=== PATIENT | female | born 1975 | race Caucasian/White ===

== ENCOUNTER → 2020-04-10 16:24 | Outpatient (CLI) | payer OTHER, SELFPAY ==
--- NOTE | ~2020-04-10 | MM_ITS ---
EXAMINATION: MM screening [facility] BI w precious HISTORY: Screening mammogram TECHNIQUE: Craniocaudal and mediolateral oblique 3-D tomosynthesis images were obtained and synthetic 2-D images were generated. CAD analysis was submitted and interpreted. COMPARISON: 04/02/2019, 04/15/2018, 01/18/2017 BREAST PARENCHYMAL COMPOSITION: The breasts are almost entirely fatty. FINDINGS: There is no evidence of suspicious mass, calcification, or architectural distortion to sugg est malignancy in either breast. There has been no suspicious interval change. IMPRESSION: 1. No mammographic evidence of malignancy. 2. Recommend routine screening mammography in one year. BI-RADS Category 1: Negative Reviewed, dictated and finalized at location A.
== END ==
PROVIDERS: Visit Provider Nurse Practitioner
DX: Z12.31 Encounter for screening mammogram for malignant neoplasm of breast (principal)
CPT/HCPCS: 77063; 77067

== ENCOUNTER → 2021-04-12 17:58 | Outpatient (CLI) | payer OTHER, SELFPAY ==
--- NOTE | ~2021-04-12 | MM_ITS ---
EXAMINATION: MM screening [facility] BI w precious HISTORY: Screening mammogram TECHNIQUE: Craniocaudal and mediolateral oblique 3-D tomosynthesis images were obtained and synthetic 2-D images were generated. CAD analysis was submitted and interpreted. COMPARISON: 04/10/2020, 04/02/2019, 02/13/2018 BREAST PARENCHYMAL COMPOSITION: The breasts are almost entirely fatty. FINDINGS: There is no evidence of suspicious mass, calcification, or architectural distortion to sugg est malignancy in either breast. There has been no suspicious interval change. IMPRESSION: 1. No mammographic evidence of malignancy. 2. Recommend routine screening mammography in one year. BI-RADS Category 1: Negative Reviewed, dictated and finalized at location A.
== END ==
PROVIDERS: Visit Provider Nurse Practitioner
DX: Z12.31 Encounter for screening mammogram for malignant neoplasm of breast (principal)
CPT/HCPCS: 77063; 77067

== ENCOUNTER 2021-12-17 01:14 | Day surgery (SDC) | payer OTHER, SELFPAY ==
[2021-12-07 10:07] VITALS: BMI 41.5
[2021-12-17 08:24] VITALS: BP 155/103; PULSE 64; RESP 20; TEMP 36; O2SAT 99; BMI 40.8
--- NOTE | 2021-12-17 08:36 | P.PNAN_ITS ---
Anes - Initial Pre Proc Eval Procedure: Operation Date: 12/17/21 09:00 Proposed Procedures p Colonoscopy - Estrada Montalvo MD Date/Time: 12/17/21 08:36 Surgeon: Estrada Montalvo MD Pre Op Diagnosis: diarrhea Patient Data Age: 46 Gender: F Height: 1.65 m Weight: 111.5 kg Last Vital Signs Temp 36.0 C L 12/17/21 08:24 Pulse 64 12/17/21 08:24 Resp 20 12/17/21 08:24 BP 155/103 H 12/17/21 08:24 Pulse Ox 99 12/17/21 08:24 Allergies Allergy/AdvReac Type Severity Reaction Status Date / Time levofloxacin Allergy Unknown itchy Verified 12/07/21 10:06 hives and rash Home Medications Medication Instructions Recorded Confirmed Type cholecalciferol (vitamin D3) 50 50 mcg PO DAILY 07/09/19 12/07/21 History mcg (2,000 unit) capsule etonogestrel 0.12 mg-ethinyl 1 vag ring VAGINAL ONCE 07/09/19 12/07/21 History estradiol 0.015 mg/24 hr vaginal ring multivitamin 1 tablet PO DAILY 07/09/19 12/07/21 History oxybutynin chloride 5 mg tablet 5 mg PO BID 07/09/19 12/07/21 History sertraline 100 mg tablet 150 mg PO DAILY tablet 08/18/21 12/07/21 History amlodipine 2.5 mg tablet See Rx Instructions .ROUTE 11/01/21 12/07/21 Rx .COMPLEX #90 tablet lisinopril 20 See Rx Instructions .ROUTE 11/01/21 12/07/21 Rx mg-hydrochlorothiazide 12.5 mg .COMPLEX #90 tablet tablet fenofibrate 160 mg tablet 160 mg PO DAILY #90 tablet 11/03/21 12/07/21 Rx Patient hx anesthesia problems: none Family hx anesthesia problems: none Results Review: All pre-operative results and documents have been reviewed as part of the pre-operative evaluation. [facility] Past Medical History Medical History (Updated 12/17/21 @ 08:36 by Fer Lund MD) Morbid obesity Surgical History Surgical History (Updated 12/17/21 @ 08:36 by Fer Lund MD) History of section Family History Family History Father Hypertension Social History Social History Smoking status: Never smoker Second hand tobacco smoke exposure: No Alcohol intake: never Substance use: never Substance use type: does not use Living arrangements: alone Gender identity (if verbalized by the patient): Female Spiritual care concerns: No Anes - Eval Final PreProcedure Day of Procedure 12/17/21 08:36 Patient weight: morbidly obese Heart: regular rate and rhythm Lungs: clear to auscultation Airway: Mallampati scale class II Neurological: alert and oriented Last oral intake: >/= 8 hours ASA classification: III Emergent: no Anesthetic plan: proceed Anesthesia type and monitoring: general GIVS and standard monitoring Results Review: All pre-operative results and documents have been reviewed as part of the pre-operative evaluation. Informed Consent: The patient's anesthetic plan and its attendant risks and benefits were discussed with the patient/family/POA. Questions were solicited and answers provided to the satisfaction of the patient/family/POA.
[2021-12-17] MEDS: LACTATED RINGERS 1,000 ML 150 ML IV CONT (08:40)
[2021-12-17 08:43] VITALS: BP 143/78
--- NOTE | 2021-12-17 08:44 | WPDGICN ---
Assessment and Plan Assessment and plan (1) Chronic diarrhea: Code(s): K52.9 - Noninfective gastroenteritis and colitis, unspecified Status: Acute Assessment and Plan: Colonoscopy with possible biopsy or polypectomy or cautery or injection of substances. GI Consult Note Consult date/time: 12/17/21 08:44 HPI: Maryjo Heard is a 46 year old female Was referred because of persistent diarrhea. Beginning about 1 year ago she has had very loose stools. Sometimes they are very very soft. Often they are watery. She is having no abdominal pain or cramping. She has had no weight loss nausea vomiting or other symptoms. There has been no blood her stools. There is no family history of inflammatory bowel disease. She has been using Imodium to try to control her symptoms. Review of Systems Review of Systems: All systems reviewed & are unremarkable except as noted in HPI and below PMFSH Past Medical History Medical History Morbid obesity Surgical History Surgical History History of section Family History Family History Father Hypertension Social History Social History Smoking status: Never smoker Second hand tobacco smoke exposure: No Alcohol intake: never Substance use: never Substance use type: does not use Living arrangements: alone Gender identity (if verbalized by the patient): Female Spiritual care concerns: No Meds Home Medications and Allergies Home Medications Medication Instructions Recorded Confirmed Type cholecalciferol (vitamin D3) 50 50 mcg PO DAILY 07/09/19 12/07/21 History mcg (2,000 unit) capsule etonogestrel 0.12 mg-ethinyl 1 vag ring VAGINAL ONCE 07/09/19 12/07/21 History estradiol 0.015 mg/24 hr vaginal ring multivitamin 1 tablet PO DAILY 07/09/19 12/07/21 History oxybutynin chloride 5 mg tablet 5 mg PO BID 07/09/19 12/07/21 History sertraline 100 mg tablet 150 mg PO DAILY tablet 08/18/21 12/07/21 History amlodipine 2.5 mg tablet See Rx Instructions .ROUTE 11/01/21 12/07/21 Rx .COMPLEX #90 tablet lisinopril 20 See Rx Instructions .ROUTE 11/01/21 12/07/21 Rx mg-hydrochlorothiazide 12.5 mg .COMPLEX #90 tablet tablet fenofibrate 160 mg tablet 160 mg PO DAILY #90 tablet 11/03/21 12/07/21 Rx Allergies Allergy/AdvReac Type Severity Reaction Status Date / Time levofloxacin Allergy Unknown itchy Verified 12/07/21 10:06 hives and rash Vital Signs Vital Signs - 24 hr 12/17/21 08:24 12/17/21 08:43 Temperature 36.0 C L Pulse Rate 64 Respiratory Rate 20 Blood Pressure 155/103 H 143/78 H Pulse Oximetry 99 Exam Const: General: alert Orientation/consciousness: patient oriented x3 Resp: Auscultation: clear to auscultation bilaterally Cardio: Rhythm: regular rhythm GI: GI Palp: Yes Soft to palpation and No Tenderness to palpation present (GI) Neuro: General: patient oriented x3
[2021-12-17 09:12] VITALS: BP 91/55; PULSE 65; RESP 17; O2SAT 94
[2021-12-17 09:22] VITALS: BP 106/64; PULSE 59; RESP 14; O2SAT 99
[2021-12-17 09:32] VITALS: BP 115/64; PULSE 62; RESP 15; O2SAT 100
== END 2021-12-17 09:45 | disposition home or self-care (01) ==
PROVIDERS: PCP Family Medicine; Visit Provider Internal Medicine Gastroenterology
PROC: 0DJD8ZZ Inspection of Lower Intestinal Tract, Via Natural or Artificial Opening Endoscopic (ICD-10-PCS; CPT 45378; principal; 2021-12-17 09:00)
DX: Z12.11 Encounter for screening for malignant neoplasm of colon (principal); D12.2 Benign neoplasm of ascending colon; R19.7 Diarrhea, unspecified; E66.01 Morbid (severe) obesity due to excess calories; Z68.41 Body mass index [BMI] 40.0-44.9, adult
CPT/HCPCS: 45380; 88305; J2704; J7120

== ENCOUNTER 2022-01-25 09:18 | Emergency (ER) | payer OTHER, SELFPAY ==
[2022-01-25 09:34] VITALS: BP 138/81; PULSE 70; RESP 16; TEMP 36.5; O2SAT 99
--- NOTE | 2022-01-25 09:56 | ED.FEMALEGU ---
HPI - Female Genitourinary General Chief complaint: Urogenital-Female Stated complaint: poss uti or yeast infec Time Seen by Provider: 01/25/22 10:02 Source: patient and RN notes reviewed Mode of arrival: ambulatory Limitations: no limitations History of Present Illness HPI Narrative: 46-year-old female presents with concern for suprapubic pressure, urinary urgency, vaginal itching. She reports she had a urinary tract infection at the beginning of December for which she was placed on an antibiotic. Reports symptoms seem to resolve. Reports she recently finished an antibiotic for sinus infection. Reports 1 week after finishing the second antibiotic she began having these new symptoms. She denies dysuria, frequency, hematuria, abnormal vaginal discharge, abnormal vaginal bleeding. She denies intervention. MD elicited complaint: UTI Related Data Home Medications Medication Instructions Recorded Confirmed cholecalciferol (vitamin D3) 50 50 mcg PO DAILY 07/09/19 01/25/22 mcg (2,000 unit) capsule etonogestrel 0.12 mg-ethinyl 1 vag ring vaginal ONCE 07/09/19 01/25/22 estradiol 0.015 mg/24 hr vaginal ring (NuvaRing) multivitamin 1 tablet PO DAILY 07/09/19 01/25/22 oxybutynin chloride 5 mg tablet 5 mg PO BID 07/09/19 01/25/22 sertraline 100 mg tablet (Zoloft) 150 mg PO DAILY 08/18/21 01/25/22 Allergies Allergy/AdvReac Type Severity Reaction Status Date / Time levofloxacin Allergy Unknown itchy Verified 01/25/22 10:02 hives and rash Review of Systems Review of Systems: CONSTITUTIONAL: Denies malaise, chills, sweats, or fever. CARDIOVASCULAR: Denies chest pain, palpitations, or edema. RESPIRATORY: Denies cough or dyspnea. GASTROINTESTINAL: Denies abdominal pain, nausea, vomiting, diarrhea GENITOURINARY: Reports urgency, suprapubic pressure. Denies dysuria, frequency, flank pain or hematuria. SKIN: Denies rash or itching. MUSCULOSKELETAL: Denies back pain or myalgia. All systems reviewed & are unremarkable except as noted in HPI and below PMFSH Past Medical History Medical History Morbid obesity Surgical History Surgical History History of section Family History Family History Father Hypertension Social History Social History Smoking status: Never smoker Second hand tobacco smoke exposure: No Alcohol intake: never Substance use: never Substance use type: does not use Gender identity (if verbalized by the patient): Female Spiritual care concerns: No Comments At time of signature, agree with nursing past medical, surgical, social and family history. There is no relevant family history pertinent to the presenting complaint Exam Narrative: GENERAL: Well-appearing, well-nourished, and in no acute distress. HEAD: Normocephalic. EYES: PERRLA, conjunctivae clear. NECK: Supple. No lymphadenopathy CHEST: Clear to auscultation. No respiratory distress. HEART: Regular rate and rhythm. ABDOMEN: Soft, nontender upon palpation, nondistended, normal active bowel sounds, no palpable or pulsatile masses, no guarding. No CVA tenderness SKIN: Warm, dry, no rash. NEURO: Alert and oriented x3. PSYCH: Normal mood and affect Course Course Emergency Course: Discussed treatment for possible UTI now or waiting for culture. Given that patient has been on antibiotics twice in the past month through shared decision making it was decided to wait for culture results to treat for UTI. Patient declined pelvic exam, patient is not having discharge. We will treat presumptively for yeast. Patient is aware of diagnosis, understands and agrees to treatment plan. Anticipatory guidance given. Patient agrees to follow-up as directed and is aware of reasons to seek care at the emergency depar
== END 2022-01-25 10:13 | disposition home or self-care (01) ==
PROVIDERS: Emergency Provider Nurse Practitioner; PCP Family Medicine
DX: N89.8 Other specified noninflammatory disorders of vagina (principal); E66.01 Morbid (severe) obesity due to excess calories; Z68.41 Body mass index [BMI] 40.0-44.9, adult
CPT/HCPCS: 81003; 87077; 87086; 87186; 99213; G0463

== ENCOUNTER → 2022-04-12 17:02 | Outpatient (CLI) | payer OTHER, SELFPAY ==
--- NOTE | ~2022-04-12 | MM_ITS ---
EXAMINATION: MM screening [facility] BI w precious HISTORY: Screening TECHNIQUE: Craniocaudal and mediolateral oblique 3-D tomosynthesis images were obtained and synthetic 2-D images were generated. CAD analysis was submitted and interpreted. COMPARISON: Comparison to multiple prior studies sequentially, with oldest reviewed study dated 01/18. BREAST PARENCHYMAL COMPOSITION: The breasts are almost entirely fatty. FINDINGS: There is no evidence of suspicious mass, calcification, or architectural distortion to sugg est malignancy in either breast. There has been no suspicious interval change. IMPRESSION: 1. No mammographic evidence of malignancy. 2. Recommend routine screening mammography in one year. BI-RADS Category 1: Negative Reviewed, dictated and finalized at location A.
== END ==
PROVIDERS: Visit Provider Nurse Practitioner
DX: Z12.31 Encounter for screening mammogram for malignant neoplasm of breast (principal)
CPT/HCPCS: 77063; 77067

== ENCOUNTER 2022-12-25 04:21 | Emergency (ER) | payer OTHER, SELFPAY ==
[2022-12-25] VITALS (7 sets, daily range): BP systolic 127–148; BP diastolic 66–81; PULSE 85–89; RESP 17–18; TEMP 36.5; O2SAT 98–100
[2022-12-25] MEDS: FAMOTIDINE 20 MG TABLET PO (05:21)
[2022-12-25] MEDS: methylPREDNISolone SOD SUCC 125 MG VIAL IM (05:22)
--- NOTE | 2022-12-25 05:45 | ED.GENADULT ---
HPI - General Adult General Chief complaint: Allergic Reaction Stated complaint: Lower lip swelling Time Seen by Provider: 12/25/22 04:59 History of Present Illness HPI narrative: Patient is a 47-year-old female who presents the emergency department with chief complaint of possible allergic reaction. The patient reports that she is currently being treated for a UTI by her urologist and reports that she started taking the Bactrim and then noticed that she started having swelling in her lips. Patient states she has no shortness of breath states it is little bit itchy reports that she had a similar episode the last time she had a UTI and took a Xyzal with the patient reports that she was seen in urgent care at that time given a dose of steroids and put on a course of steroids afterwards. The patient reports that this time she started the symptoms and had not taken any antihistamine. Related Data Home Medications Medication Instructions Recorded Confirmed cholecalciferol (vitamin D3) 50 50 mcg PO DAILY 07/09/19 09/15/22 mcg (2,000 unit) capsule etonogestrel 0.12 mg-ethinyl 1 vag ring vaginal ONCE 07/09/19 09/15/22 estradiol 0.015 mg/24 hr vaginal ring (NuvaRing) multivitamin 1 tablet PO DAILY 07/09/19 09/15/22 oxybutynin chloride 5 mg tablet 5 mg PO BID 07/09/19 09/15/22 sertraline 100 mg tablet (Zoloft) 150 mg PO DAILY 08/18/21 09/15/22 loperamide 2 mg capsule (Imodium 2 mg PO QID PRN 05/12/22 09/15/22 A-D) Allergies Allergy/AdvReac Type Severity Reaction Status Date / Time levofloxacin Allergy Unknown itchy Verified 12/25/22 04:40 hives and rash sulfamethoxazole Allergy Swelling Verified 12/25/22 04:40 [From Bactrim] trimethoprim [From Bactrim] Allergy Swelling Verified 12/25/22 04:40 Review of Systems Review of Systems: A 10 system review of systems was completed on the patient and is negative except for what is stated in the HPI. Nursing and ancillary documentation was reviewed. [facility], [facility] Past Medical History Medical History IFG (impaired fasting glucose) Morbid obesity Obesity Surgical History Surgical History History of section Family History Family History Father Hypertension Social History Social History Smoking status: Never smoker Second hand tobacco smoke exposure: No Alcohol intake: never Substance use: never Substance use type: does not use Living arrangements: with family Occupation/Education: occupation Gender identity (if verbalized by the patient): Female Sexual Orientation (if Verbalized by the Patient): Straight or Heterosexual Spiritual care concerns: No Exam Narrative: GENERAL: Well-appearing, well-nourished, and in no acute distress. HEAD: Normocephalic, atraumatic. EYES: PERRLA and EOMI. ENT: Nares clear, no rhinorrhea or epistaxis. Mucous membranes moist. Slight swelling of the lips. No urticaria noted. NECK: Supple. CHEST: Clear to auscultation. No respiratory distress. HEART: Regular rate and rhythm. No murmur heard. Normal peripheral pulses. ABDOMEN: Soft, nontender, nondistended, normal active bowel sounds. EXTREMITIES: Normal range of motion. No edema. SKIN: Warm, dry, no rash. NEURO: No focal deficits. Alert and oriented x3. PSYCH: Normal mood and affect. Course Vital Signs Vital signs: Vital Signs Temperature 36.5 C 12/25/22 04:25 Pulse Rate 89 12/25/22 04:25 Respiratory Rate 17 12/25/22 04:25 Blood Pressure 148/74 H 12/25/22 04:25 Pulse Oximetry 100 12/25/22 04:25 Oxygen Delivery Room Air 12/25/22 04:25 Temperature 36.5 C 12/25/22 04:25 Pulse Rate 85 12/25/22 04:38 Respiratory Rate 18 12/25/22 04:38 Blood Pressure 1
== END 2022-12-25 06:13 | disposition home or self-care (01) ==
PROVIDERS: Emergency Provider Emergency Medicine; PCP Family Medicine
DX: T78.40XA Allergy, unspecified, initial encounter (principal); N39.0 Urinary tract infection, site not specified; E66.01 Morbid (severe) obesity due to excess calories; Z68.41 Body mass index [BMI] 40.0-44.9, adult
CPT/HCPCS: 96372; 99283; A9270; J2930

== ENCOUNTER → 2023-01-14 08:53 | Outpatient (CLI) | payer OTHER, SELFPAY ==
--- NOTE | ~2023-01-14 | US_ITS ---
EXAMINATION: US thyroid DATE: 01/14/2023 09:33 INDICATION: Nontoxic goiter, unspecified. TECHNIQUE: Multiple ultrasound images of the thyroid were obtained. COMPARISON: None. FINDINGS: The right thyroid lobe measures 4.6 x 1.3 x 1.2 cm. The left thyroid lobe measures 5.1 x 1.5 x 1.4 c m. In the right thyroid lobe, there is an 8 mm solid, hypoechoic, wider than tall nodule with ill-de fined margin without echogenic foci (TI-RADS TR4). In the left thyroid lobe, there is a 6 mm solid, i soechoic, wider than tall nodule with smooth margin and peripheral calcifications (TR4). In the left thyroid lobe, there is a 2.3 cm solid, hypoechoic, wider than tall nodule with ill-defined margin wit hout echogenic foci (TR4). IMPRESSION: 1. Thyroid nodules. Ultrasound-guided fine-needle aspiration of the 2.3 cm left thyroid nodule is rec ommended. Reviewed, dictated and finalized at location A. IMPRESSION: 1. Thyroid nodules. Ultrasound-guided fine-needle aspiration of the 2.3 cm left thyroid nodule is recommended.
== END ==
PROVIDERS: PCP Family Medicine; Visit Provider Obstetrics & Gynecology Gynecology
DX: E04.2 Nontoxic multinodular goiter (principal)
CPT/HCPCS: 76536

== ENCOUNTER 2023-05-11 13:23 | Outpatient (CLI) | payer OTHER, SELFPAY ==
--- NOTE | ~2023-05-11 | MM_ITS ---
EXAMINATION: MM screening [facility] BI w precious HISTORY: Screening TECHNIQUE: Craniocaudal and mediolateral oblique 3-D tomosynthesis images were obtained and synthetic 2-D images were generated. CAD analysis was submitted and interpreted. COMPARISON: Comparison to multiple prior studies sequentially, with oldest reviewed study dated 01/18. BREAST PARENCHYMAL COMPOSITION: The breasts are almost entirely fatty. FINDINGS: There is no evidence of suspicious mass, calcification, or architectural distortion to sugg est malignancy in either breast. There has been no suspicious interval change. IMPRESSION: 1. No mammographic evidence of malignancy. 2. Recommend routine screening mammography in one year. BI-RADS Category 1: Negative Reviewed, dictated and finalized at location A.
== END 2023-05-11 13:24 | disposition home or self-care (01) ==
LOC: CHSIMG 13:25
PROVIDERS: PCP Family Medicine; Visit Provider Nurse Practitioner
DX: Z12.31 Encounter for screening mammogram for malignant neoplasm of breast (principal)
CPT/HCPCS: 77063; 77067

== ENCOUNTER → 2023-10-14 09:08 | Outpatient (CLI) | payer OTHER, SELFPAY ==
--- NOTE | ~2023-10-14 | XR_ITS ---
XR foot RT min 3V 10/14/2023 10:14 INDICATION: Right foot pain PROCEDURE: 4 views right foot COMPARISON: No prior studies for comparison. FINDINGS: Fracture, dislocation or subluxation is not identified. Lisfranc joint intact. There are se samoids overlying the second MTP joint. There is a degenerative calcaneal enthesophyte. Lisfranc join t intact. The soft tissues appear within normal limits. No foreign bodies are identified. IMPRESSION: 1: NO ACUTE BONE OR JOINT ABNORMALITY IDENTIFIED. Reviewed, dictated and finalized at location A. WORKER
== END ==
PROVIDERS: PCP Physician Assistant; Visit Provider Physician Assistant
DX: M79.671 Pain in right foot (principal)
CPT/HCPCS: 73630

== ENCOUNTER 2023-11-15 14:27 | Outpatient (CLI) | payer OTHER, SELFPAY ==
[2023-11-21 10:55] LABS: Immunoglobulin A 90 mg/dL (47-310)
[2023-11-22 22:12] LABS: Pancreatic Elastase, Stool >500 mcg/g
== END 2023-11-15 14:28 | disposition home or self-care (01) ==
LOC: ANHLAB 14:27
PROVIDERS: PCP Family Medicine; Visit Provider Nurse Practitioner Family
DX: K52.9 Noninfective gastroenteritis and colitis, unspecified (principal)
CPT/HCPCS: 36415; 82653; 82784; 86364; 87045; 87177; 87209; 87269; 87427; 87449; 87493

== ENCOUNTER 2024-01-18 00:45 | Day surgery (SDC) | payer OTHER, SELFPAY ==
[2023-12-29 13:28] VITALS: BMI 41.5
[2024-01-18 08:23] VITALS: BP 147/75; PULSE 65; RESP 18; TEMP 36.3; O2SAT 100
[2024-01-18] MEDS: LACTATED RINGERS 1,000 ML 150 ML IV CONT (08:34)
--- NOTE | 2024-01-18 08:56 | WPDANESEPPF ---
Anes - Initial Pre Proc Eval Procedure: Operation Date: 01/18/24 09:30 Proposed Procedures p Esophagogastroduodenoscopy - Samuel Rankin MD Date/Time: 01/18/24 08:56 Surgeon: Samuel Rankin MD Pre Op Diagnosis: Gastroenteritis/colitis, abn. immunological findin Patient Data Age: 48 Gender: F Height: 1.66 m Weight: 121.6 kg Last Vital Signs Temp 97.3 F L 01/18/24 08:23 Pulse 65 01/18/24 08:23 Resp 18 01/18/24 08:23 BP 147/75 H 01/18/24 08:23 Pulse Ox 100 01/18/24 08:23 O2 Del Method Room Air 01/18/24 08:23 Allergies Allergy/AdvReac Type Severity Reaction Status Date / Time levofloxacin Allergy Unknown itchy Verified 01/18/24 08:21 hives and rash sulfamethoxazole Allergy Swelling Verified 01/18/24 08:21 [From Bactrim] trimethoprim [From Bactrim] Allergy Swelling Verified 01/18/24 08:21 Home Medications Medication Instructions Recorded Confirmed Type cholecalciferol (vitamin D3) 50 50 mcg PO DAILY 07/09/19 12/29/23 History mcg (2,000 unit) capsule etonogestrel 0.12 mg-ethinyl 1 vag ring vaginal ONCE 07/09/19 12/29/23 History estradiol 0.015 mg/24 hr vaginal ring (NuvaRing) multivitamin 1 tablet PO DAILY 07/09/19 12/29/23 History oxybutynin chloride 5 mg tablet 5 mg PO BID 07/09/19 12/29/23 History sertraline 100 mg tablet (Zoloft) 150 mg PO DAILY 08/18/21 12/29/23 History loperamide 2 mg capsule (Imodium 2 mg PO QID PRN Diarrhea 05/12/22 12/29/23 History A-D) ondansetron 4 mg disintegrating 4 mg PO Q8H PRN nausea and 09/15/22 12/29/23 Rx tablet vomiting #10 tabs fenofibrate 160 mg tablet 160 mg PO DAILY #90 tabs 11/15/22 12/29/23 Rx amlodipine 2.5 mg tablet See Rx Instructions .Route 02/06/23 12/29/23 Rx .COMPLEX #90 tabs lisinopril 20 See Rx Instructions .Route 02/06/23 12/29/23 Rx mg-hydrochlorothiazide 12.5 mg .COMPLEX #90 tabs tablet fexofenadine 60 mg tablet (Stephani 60 mg PO Q12H 10/13/23 12/29/23 History Allergy) fluticasone propionate 50 2 spray intranasal DAILY 10/13/23 12/29/23 History mcg/actuation nasal spray,suspension (Flonase Allergy Relief) bupropion HCl 100 mg tablet,12 hr 100 mg PO DAILY #30 tabs 11/10/23 12/29/23 Rx sustained-release (Wellbutrin SR) eluxadoline 100 mg tablet (Viberzi) 100 mg PO BID 1 month #60 tabs 11/15/23 12/29/23 Rx meloxicam 7.5 mg tablet 7.5 mg PO DAILY PRN pain #30 tabs 12/13/23 12/29/23 Rx Patient hx anesthesia problems: none Family hx anesthesia problems: none Results Review: All pre-operative results and documents have been reviewed as part of the pre-operative evaluation. [facility] Past Medical History Medical History (Updated 11/22/23 @ 08:03 by RUSS Childers) IFG (impaired fasting glucose) Morbid obesity Obesity MARILIA (obstructive sleep apnea) Positive autoantibody screening for celiac disease Surgical History Surgical History History of section Family History Family History Father Hypertension Social History Social History Smoking status: Never smoker Second hand tobacco smoke exposure: No Alcohol intake: never Substance use: never Substance use type: does not use Living arrangements: with family Occupation/Education: occupation Gender identity (if verbalized by the patient): Female Sexual Orientation (if Verbalized by the Patient): Straight or Heterosexual Spiritual care concerns: No Anes - Eval Final PreProcedure Day of Procedure 01/18/24 08:56 Patient weight: morbidly obese Heart: regular rate and rhythm Lungs: clear to auscultation Airway: Mallampati scale class II Neurological: alert and oriented Last oral intake: >/= 8 hours ASA classification: III Emergent: no Anesthetic plan: proceed Anesthesia type and m
--- NOTE | 2024-01-18 09:30 | PM.HPGS ---
History of Present Illness History of Present Illness Consent: Risks, benefits, and alternatives have been discussed and questions answered. Patient agrees to proceed with procedure. Chief complaint: Gastroenteritis/colitis, abn. immunological findin Narrative: Maryjo Heard is a 48 year old female with chronic diarrhea, colonoscopy normal biopsies, recent serology for celiac is positive, never had egd. Review of Systems Review of Systems: All systems reviewed & are unremarkable except as noted in HPI and below PMFSH Past Medical History Medical History (Updated 11/22/23 @ 08:03 by RUSS Childers) IFG (impaired fasting glucose) Morbid obesity Obesity MARILIA (obstructive sleep apnea) Positive autoantibody screening for celiac disease Surgical History Surgical History History of section Family History Family History Father Hypertension Social History Social History Smoking status: Never smoker Second hand tobacco smoke exposure: No Alcohol intake: never Substance use: never Substance use type: does not use Living arrangements: with family Occupation/Education: occupation Gender identity (if verbalized by the patient): Female Sexual Orientation (if Verbalized by the Patient): Straight or Heterosexual Spiritual care concerns: No Meds Home Medications and Allergies Home Medications Medication Instructions Recorded Confirmed Type cholecalciferol (vitamin D3) 50 50 mcg PO DAILY 07/09/19 12/29/23 History mcg (2,000 unit) capsule etonogestrel 0.12 mg-ethinyl 1 vag ring vaginal ONCE 07/09/19 12/29/23 History estradiol 0.015 mg/24 hr vaginal ring (NuvaRing) multivitamin 1 tablet PO DAILY 07/09/19 12/29/23 History oxybutynin chloride 5 mg tablet 5 mg PO BID 07/09/19 12/29/23 History sertraline 100 mg tablet (Zoloft) 150 mg PO DAILY 08/18/21 12/29/23 History loperamide 2 mg capsule (Imodium 2 mg PO QID PRN Diarrhea 05/12/22 12/29/23 History A-D) ondansetron 4 mg disintegrating 4 mg PO Q8H PRN nausea and 09/15/22 12/29/23 Rx tablet vomiting #10 tabs fenofibrate 160 mg tablet 160 mg PO DAILY #90 tabs 11/15/22 12/29/23 Rx amlodipine 2.5 mg tablet See Rx Instructions .Route 02/06/23 12/29/23 Rx .COMPLEX #90 tabs lisinopril 20 See Rx Instructions .Route 02/06/23 12/29/23 Rx mg-hydrochlorothiazide 12.5 mg .COMPLEX #90 tabs tablet fexofenadine 60 mg tablet (Stephani 60 mg PO Q12H 10/13/23 12/29/23 History Allergy) fluticasone propionate 50 2 spray intranasal DAILY 10/13/23 12/29/23 History mcg/actuation nasal spray,suspension (Flonase Allergy Relief) bupropion HCl 100 mg tablet,12 hr 100 mg PO DAILY #30 tabs 11/10/23 12/29/23 Rx sustained-release (Wellbutrin SR) eluxadoline 100 mg tablet (Viberzi) 100 mg PO BID 1 month #60 tabs 11/15/23 12/29/23 Rx meloxicam 7.5 mg tablet 7.5 mg PO DAILY PRN pain #30 tabs 12/13/23 12/29/23 Rx Allergies Allergy/AdvReac Type Severity Reaction Status Date / Time levofloxacin Allergy Unknown itchy Verified 01/18/24 08:21 hives and rash sulfamethoxazole Allergy Swelling Verified 01/18/24 08:21 [From Bactrim] trimethoprim [From Bactrim] Allergy Swelling Verified 01/18/24 08:21 Vital Signs Vital Signs - 24 hr 01/18/24 08:23 Temperature 97.3 F L Pulse Rate 65 Respiratory Rate 18 Blood Pressure 147/75 H Pulse Oximetry 100 Oxygen Delivery Room Air Exam Const: General: comfortable and no acute distress HENMT: Face/Nose/Sinus: Normal nares present Eyes: General: appearance normal, both eyes and all related structures Neck: Neck: no JVD Resp: Auscultation: clear to auscultation bilaterally Cardio: Rate: regular rate Rhythm: regular rhythm GI: Inspection: non-distended GI Palp: Yes Soft to palpation
[2024-01-18 09:40] VITALS: BP 107/71; PULSE 71; RESP 20; O2SAT 100
[2024-01-18 09:50] VITALS: BP 120/79; PULSE 67; RESP 25; O2SAT 99
[2024-01-18 10:00] VITALS: BP 128/80; PULSE 61; RESP 22; O2SAT 100
== END 2024-01-18 10:19 | disposition home or self-care (01) ==
PROVIDERS: PCP Family Medicine; Visit Provider Internal Medicine Gastroenterology
PROC: 0DJ08ZZ Inspection of Upper Intestinal Tract, Via Natural or Artificial Opening Endoscopic (ICD-10-PCS; CPT 43235; principal; 2024-01-18 09:30)
DX: K90.0 Celiac disease (principal); R19.7 Diarrhea, unspecified; G47.33 Obstructive sleep apnea (adult) (pediatric); R73.01 Impaired fasting glucose; E66.01 Morbid (severe) obesity due to excess calories; Z68.41 Body mass index [BMI] 40.0-44.9, adult; Z98.890 Other specified postprocedural states
CPT/HCPCS: 43239; 88305; J2704; J7120

== ENCOUNTER 2024-02-29 08:03 | Outpatient (RCR) | payer OTHER, SELFPAY ==
[2024-02-29 08:50] VITALS: BMI 43.9
[2024-02-29 08:51] VITALS: BMI 43.9
== END 2024-05-20 10:26 | disposition home or self-care (01) ==
LOC: ANHDMC 08:03
PROVIDERS: PCP Family Medicine; Visit Provider Nurse Practitioner Family
DX: K90.0 Celiac disease (principal); Z71.3 Dietary counseling and surveillance
CPT/HCPCS: 97802

== ENCOUNTER 2024-05-28 13:02 | Outpatient (CLI) | payer BC, SELFPAY ==
--- NOTE | ~2024-05-28 | MM_ITS ---
EXAMINATION: MM screening jewel BI w precious HISTORY: Screening TECHNIQUE: Craniocaudal and mediolateral oblique 3-D tomosynthesis images were obtained and synthetic 2-D images were generated. CAD analysis was submitted and interpreted. COMPARISON: No prior mammogram is available for comparison at this institution. BREAST PARENCHYMAL COMPOSITION: Not Dense: The breasts are almost entirely fatty. FINDINGS: There is no evidence of suspicious mass, calcification, or architectural distortion to sugg est malignancy in either breast. There has been no suspicious interval change. IMPRESSION: 1. No mammographic evidence of malignancy. 2. Recommend routine screening mammography in one year. BI-RADS Category 1: Negative Reviewed, dictated and finalized at location [facility].
== END 2024-05-28 13:03 | disposition home or self-care (01) ==
LOC: CHSIMG 13:06
PROVIDERS: PCP Family Medicine; Visit Provider Obstetrics & Gynecology Gynecology
DX: Z12.31 Encounter for screening mammogram for malignant neoplasm of breast (principal)
CPT/HCPCS: 77063; 77067

== ENCOUNTER 2024-06-17 13:16 | Emergency (ER) | payer BC, SELFPAY ==
[2024-06-17 13:30] VITALS: BP 145/75; PULSE 80; RESP 15; TEMP 36.4; O2SAT 100
--- NOTE | 2024-06-17 13:35 | ED_ITS ---
HPI - URI/Sore Throat General Chief Complaint: Upper Respiratory Infection Stated Complaint: Cold Symptoms Time Seen by Provider: 06/17/24 13:35 Source: patient Mode of arrival: ambulatory Limitations: no limitations History of Present Illness HPI Narrative: 48-year-old female presents with complaint of sinus congestion, postnasal drainage, sinus pressure, coughing since May 30. Afebrile. Symptoms getting progressively worse. Take [id number] antihistamines daily. History of sinus surgery. Reports that is normal for her to get a yearly sinus infection. All systems reviewed and negative except as noted above. Related Data Home Medications Medication Instructions Recorded Confirmed cholecalciferol (vitamin D3) 50 50 mcg PO DAILY 07/09/19 06/17/24 mcg (2,000 unit) capsule etonogestrel 0.12 mg-ethinyl 1 vag ring vaginal ONCE 07/09/19 06/17/24 estradiol 0.015 mg/24 hr vaginal ring (NuvaRing) multivitamin 1 tablet PO DAILY 07/09/19 06/17/24 oxybutynin chloride 5 mg tablet 5 mg PO BID 07/09/19 06/17/24 sertraline 100 mg tablet (Zoloft) 150 mg PO DAILY 08/18/21 03/29/24 loperamide 2 mg capsule (Imodium 2 mg PO QID PRN Diarrhea 05/12/22 06/17/24 A-D) fexofenadine 60 mg tablet (Stephani 60 mg PO Q12H 10/13/23 06/17/24 Allergy) fluticasone propionate 50 2 spray intranasal DAILY 10/13/23 06/17/24 mcg/actuation nasal spray,suspension (Flonase Allergy Relief) Allergies Allergy/AdvReac Type Severity Reaction Status Date / Time levofloxacin Allergy Unknown itchy Verified 06/17/24 13:28 hives and rash sulfamethoxazole Allergy Swelling Verified 06/17/24 13:28 [From Bactrim] trimethoprim [From Bactrim] Allergy Swelling Verified 06/17/24 13:28 Review of Systems Review of Systems: CONSTITUTIONAL: Denies fever, chills, or sweats. EYES: Denies visual changes, redness, or discharge. ENT: Reports rhinorrhea, congestion, sinus pressure. Denies sore throat, or otalgia. CARDIOVASCULAR: Denies chest pain, palpitations, or edema. RESPIRATORY: Reports cough. Denies dyspnea. GASTROINTESTINAL: Denies abdominal pain, nausea, vomiting, or diarrhea. GENITOURINARY: Denies dysuria or hematuria. SKIN: Denies rash or itching. MUSCULOSKELETAL: Denies back pain, joint pain, or myalgia. NEUROLOGIC: Denies headache, numbness, or weakness. PSYCHIATRIC: Denies anxiety or depression. All other systems reviewed are negative, except as documented in HPI. [facility] Past Medical History Medical History (Updated 06/17/24 @ 13:42 by Annabella Mathur NP) Celiac disease IFG (impaired fasting glucose) Morbid obesity Obesity MARILIA (obstructive sleep apnea) Positive autoantibody screening for celiac disease Surgical History Surgical History History of section Family History Family History Father Hypertension Social History Social History Smoking status: Never smoker Second hand tobacco smoke exposure: No Alcohol intake: never Substance use: never Substance use type: does not use Living arrangements: with family Occupation/Education: occupation Gender identity (if verbalized by the patient): Female Sexual Orientation (if Verbalized by the Patient): Straight or Heterosexual Spiritual care concerns: No Comments At time of signature, agree with nursing past medical, surgical, social and family history. There is no relevant family history pertinent to the presenting complaint. Exam Narrative: GENERAL: This is a well-nourished, well-developed patient, in no apparent distress. HEAD: normocephalic, atraumatic. EYES: PERRL. Sclera clear/white. Vision is grossly intact. EARS: External ears normal, auditory canals clear and without drainage, fluid TMs, dull light reflex, without perforation. Hearing grossly intact. NOSE: External nose normal with moderate nasal congestion, no nasal drainage. No erythema to both nares. Maxillary sinus tenderness bilaterally on palpation THROAT: Mucous membranes moist, postnasal drainage NECK: Neck supple, non-tender without lymphadenopathy, masses or thyromegaly. CARDIOVASCULAR: Regular rate and rhythm without murmurs, gallops, or rubs. RESPIRATORY: Clear to auscultation. Breath sounds equal bilaterally. No wheezes, rales, or rhonchi. SKIN: warm, Dry, intact with no suspicious lesions or rash, good texture and turgor. NEURO: awake, alert, and oriented to person, place and time. There were no obvious focal neurologic abnormalities. EXTREMITIES: No joint tenderness, effusion, or edema noted. Course Course Level of Care: Express Care Visit Vital Signs Vital signs: Vital Signs Temperature 36.4 C L 06/17/24 13:30 Pulse Rate 80 06/17/24 13:30 Respiratory Rate 15 06/17/24 13:30 Blood Pressure 145/75 H 06/17/24 13:30 Pulse Oximetry 100 06/17/24 13:30 Oxygen Delivery Room Air 06/17/24 13:30 Temperature 36.4 C L 06/17/24 13:37 Pulse Rate 80 06/17/24 13:37 Respiratory Rate 15 06/17/24 13:37 Blood Pressure 145/75 H 06/17/24 13:37 Pulse Oximetry 100 06/17/24 13:37 Oxygen Delivery Room Air 06/17/24 13:37 Reviewed MDM - URI/Sore Throat MDM Narrative Medical decision making narrative: Will treat patient for bacterial sinusitis due to duration of symptoms and exam findings. Patient is aware of diagnosis, understands and agrees to treatment plan. Anticipatory guidance given. Patient agrees to follow-up as directed and is aware of reasons to seek care at the emergency department. Portions of this record may have been created with voice recognition software Differential Diagnosis Differential diagnosis: Likely upper respiratory infection, sinusitis, viral infection and influenza Discharge Plan Discharge Clinical Impression: Acute bacterial sinusitis Patient Disposition: Home, Self-Care Condition: Stable Instructions: Antibiotic Form, Sinusitis (ED) Additional Instructions: Take medications as prescribed. Continue taking daily allergy medications. Take ibuprofen or Tylenol every 6-8 hours as needed for pain. Drink at least 64 oz water a day. Follow-up with your primary care physician if symptoms are not improving. Prescriptions: New doxycycline hyclate 100 mg capsule 100 mg PO BID 7 Days Qty: 14 0RF benzonatate 200 mg capsule 200 mg PO TID PRN (Reason: cough) Qty: 20 0RF prednisone 20 mg tablet 40 mg PO DAILY 5 Days Qty: 10 0RF No Action multivitamin Tablet 1 tablet PO DAILY NuvaRing 0.12-0.015 mg/24 hr ring 1 vag ring VAGINAL ONCE oxybutynin chloride 5 mg tablet 5 mg PO BID cholecalciferol (vitamin D3) 50 mcg (2,000 unit) capsule 50 mcg PO DAILY ondansetron 4 mg tablet,disintegrating 4 mg PO Q8H PRN (Reason: nausea and vomiting) Qty: 10 0RF Viberzi 100 mg tablet 100 mg PO BID 30 Days Qty: 60 2RF Rx Instructions: must administer with a meal/food sertraline [Zoloft] 100 mg tablet 150 mg PO DAILY loperamide [Imodium A-D] 2 mg capsule 2 mg PO QID PRN (Reason: Diarrhea) fexofenadine [Stephani Allergy] 60 mg tablet 60 mg PO Q12H fluticasone propionate [Flonase Allergy Relief] 50 mcg/actuation spray,suspension 2 spray intranasal DAILY Rx Instructions: administer into each nostril lisinopril-hydrochlorothiazide 20-12.5 mg tablet See Rx Instructions .ROUTE .COMPLEX Qty: 90 2RF Dose Instruction: Take 1 tablet by mouth once daily Rx Instructions: Take 1 tablet by mouth once daily amlodipine 2.5 mg tablet See Rx Instructions .ROUTE .COMPLEX Qty: 90 2RF Dose Instruction: Take 1 tablet by mouth once daily Rx Instructions: Take 1 tablet by mouth once daily meloxicam 7.5 mg tablet 7.5 mg PO DAILY PRN (Reason: pain) Qty: 90 1RF fenofibrate 160 mg tablet 160 mg PO DAILY Qty: 90 1RF bupropion HCl [Wellbutrin SR] 100 mg tablet sustained-release 12 hr 100 mg PO DAILY Qty: 90 1RF Follow-up/Referrals: Marcus Foote MD [Primary Care Provider] - Stand Alone Forms: Work/School Release IP Time of Disposition: 13:42
[2024-06-17 13:37] VITALS: BP 145/75; PULSE 80; RESP 15; TEMP 36.4; O2SAT 100
== END 2024-06-17 13:47 | disposition home or self-care (01) ==
PROVIDERS: Emergency Provider Nurse Practitioner Family; PCP Family Medicine
DX: J01.90 Acute sinusitis, unspecified (principal); K90.0 Celiac disease; E66.01 Morbid (severe) obesity due to excess calories; Z68.41 Body mass index [BMI] 40.0-44.9, adult
CPT/HCPCS: 99213; G0463

== ENCOUNTER 2024-07-13 13:26 | Outpatient (CLI) | payer BC, SELFPAY ==
[2024-07-13 13:52] LABS: Iron 52 ug/dL (37-170)
[2024-07-13 14:02] LABS: Percent Iron Saturation 10 % (20-50)
[2024-07-15 18:09] LABS: Tissue Transglutaminase IgG Ab <1.0 U/mL
== END 2024-07-13 13:27 | disposition home or self-care (01) ==
LOC: ANHLAB 13:29
PROVIDERS: PCP Family Medicine; Visit Provider Nurse Practitioner Family
DX: K90.0 Celiac disease (principal)
CPT/HCPCS: 36415; 83540; 83550; 86364

== ENCOUNTER 2024-07-23 16:29 | Outpatient (CLI) | payer BC, SELFPAY ==
[2024-07-25 03:49] LABS: Tissue Transglutaminase IgA Ab 6.1 U/mL
== END 2024-07-23 16:30 | disposition home or self-care (01) ==
LOC: ANHLAB 16:31
PROVIDERS: PCP Family Medicine; Visit Provider Nurse Practitioner Family
DX: R76.8 Other specified abnormal immunological findings in serum (principal)
CPT/HCPCS: 36415; 86364

== ENCOUNTER 2024-09-20 17:30 | Emergency (ER) | payer BC, SELFPAY ==
--- NOTE | 2024-09-20 17:38 | ED.URI ---
HPI - URI/Sore Throat General Chief Complaint: Upper Respiratory Infection Stated Complaint: SINUS CONGESTION/LOSING VOICE/COUGH Time Seen by Provider: 09/20/24 17:30 Source: patient Mode of arrival: ambulatory Limitations: no limitations History of Present Illness HPI Narrative: Patient is a 48-year-old female who presents with horses, sinus congestion, headache, cough for 5 days. Denies any fever, chills, nausea, vomiting, diarrhea. Has been taking [id number] medications with no relief. Patient also had strep throat 2 weeks ago finishing antibiotics 1 week ago. Patient states she only had 2 days of no symptoms before symptoms returned. Related Data Home Medications ?Medication ?Instructions ?Recorded ?Confirmed ?Last Taken ?Type cholecalciferol (vitamin D3) 50 50 mcg PO DAILY 07/09/19 09/20/24 12/15/21 History mcg (2,000 unit) capsule etonogestrel 0.12 mg-ethinyl 1 vag ring vaginal ONCE 07/09/19 09/20/24 12/15/21 History estradiol 0.015 mg/24 hr vaginal ring (NuvaRing) multivitamin 1 tablet PO DAILY 07/09/19 09/20/24 12/15/21 History oxybutynin chloride 5 mg tablet 5 mg PO BID 07/09/19 09/20/24 12/15/21 History sertraline 100 mg tablet (Zoloft) 150 mg PO DAILY 08/18/21 09/20/24 12/15/21 History fexofenadine 60 mg tablet (Stephani 60 mg PO Q12H 10/13/23 09/20/24 Unknown History Allergy) fluticasone propionate 50 2 spray intranasal DAILY 10/13/23 09/20/24 Unknown History mcg/actuation nasal spray,suspension (Flonase Allergy Relief) Allergies Allergy/AdvReac Type Severity Reaction Status Date / Time levofloxacin Allergy Unknown itchy Verified 07/24/24 15:51 hives and rash sulfamethoxazole (From Allergy Swelling Verified 07/24/24 15:51 Bactrim) trimethoprim (From Bactrim) Allergy Swelling Verified 07/24/24 15:51 Review of Systems Review of Systems: All systems reviewed & are unremarkable except as noted in HPI and below Constitutional: Constitutional: Denies body ache(s), Denies chills, Denies fatigue, Denies fever(s), Reports headache(s), Denies malaise and Denies weakness Eyes: Eyes: Denies blurry vision, Denies itchy eyes and Denies loss of vision ENT: Denies otalgia, Reports headache(s), Reports nasal congestion, Denies sinus pain, Reports sinus pressure and Denies sore throat Cardiovascular: Cardiovascular: Denies chest pain, Denies irregular heart rhythm and Denies dyspnea Respiratory: Respiratory: Reports cough and Denies dyspnea Gastrointestinal: Gastrointestinal: Denies abdominal pain, Denies diarrhea, Denies nausea and Denies vomiting Musculoskeletal: Musculoskeletal: Denies back pain, Denies myalgias and Denies arthralgias Integumentary/Breasts: Skin/Breast: Denies pruritus and Denies rash Neurologic: Reports headache(s), Denies loss of vision and Denies weakness Psychiatric: Psychiatric: Reports no additional psychiatric complaints Endocrine: Endocrine: Denies fatigue Allergic/Immunologic: Allergic/Immunologic: Denies itchy eyes PMFSH Past Medical History Medical History Adenomatous colon polyp Hemorrhoids Fecal incontinence Iron deficiency Celiac disease Positive autoantibody screening for celiac disease MARILIA (obstructive sleep apnea) IFG (impaired fasting glucose) Obesity Morbid obesity Surgical History Surgical History History of section Family History Family History Father Hypertension Social History Social History Smoking status: Never smoker Second hand tobacco smoke exposure: No Alcohol intake: never Substance use: never Substance use type: does not use Living arrangements: with family Occupation/Education: occupation Gender identity (if verbalized by the patient): Female Sexual Orientation (if Verbalized by the Patient): Straight or Heterosexual Spiritual care concerns: No Comments At time of signature, agree with nursing past medical, surgical, social and family history. There is no relevant family history pertinent to the presenting complaint. Exam Const: General: cooperative, healthy appearing, comfortable, no acute distress and well nourished Nutritional Appearance: well nourished Orientation/consciousness: patient oriented x3 Limitations: no limitations HENMT: Head: normal to inspection, normocephalic and atraumatic Ears: hearing grossly normal bilaterally, external ears normal, TM's normal bilaterally, EAC's normal and no periauricular adenopathy Face/Nose/Sinus: Normal external nose present, Abnormal mucous membranes and turbinates present erythematous bilateral and diffuse, normal facial exam, face symmetric and Facial tenderness on exam of face and sinuses Face and sinus: normal facial exam, sinuses nontender and face symmetric Mouth: Yes Normal oral and palatal mucosa present, Yes lip normal, Yes tongue normal, Yes Normal salivary glands and ducts present, Yes oropharynx normal and Yes moist mucous membranes Teeth and gingiva: dentition normal Throat: posterior oropharynx normal, tonsils normal and uvula midline Eyes: General: appearance normal, both eyes and all related structures Alignment and Position: alignment normal and position normal Periorbital: periorbital findings normal Eyelids: eyelids normal Pupils: Equal, round and reactive pupils present Neck: Neck: normal visual inspection, full ROM, no lymphadenopathy and supple Chest: Chest palpation & inspection: normal inspection of the chest and normal palpation of entire chest wall Resp: Effort & Inspection: normal respiratory effort, able to speak in complete sentences and Actively coughing actively coughing Auscultation: clear to auscultation bilaterally, no crackles, no rales, rhonchi lower bilaterally and no wheezes Cardio: Rate: regular rate Rhythm: regular rhythm Heart sounds: S1 normal heart sound present and S2 normal heart sound present GI: Inspection: normal to inspection Skin: General skin exam: normal color and no rashes or lesions noted Neuro: General: patient oriented x3 and moves all extremities Cranial nerves: Yes Equal, round and reactive pupils present Speech: normal speech Gait exam (Neuro): Normal gait present Extrem: General: normal to inspection, full ROM and no edema Psych: Appearance: grossly normal and well kempt Mental Status: mental status grossly normal Speech and movement: Normal speech and movement present Affect: normal affect Attitude: cooperative Thought process: Normal thought process present Course Course Emergency Course: Discharge instructions reviewed with patient, as well as provided in writing per nursing staff. The instructions also include specific and strict return/GO TO THE ER as well as f/u information. All questions have been answered, and the patient deny any further questions with discharge and discharge plan. Portions of this record may have been created with voice recognition software Level of Care: Express Care Visit Vital Signs Vital signs: Reviewed MDM - URI/Sore Throat MDM Narrative Medical decision making narrative: Pt well hydrated appearing, in no respiratory distress, hemodynamically stable. Recommend supportive care. The patient is stable at time of discharge the clinical impression was discussed and the patient was given the opportunity to ask questions, which were addressed as completely as possible given the information available at present. Anticipatory guidance and return to care precautions were discussed and the importance of primary care follow-up was stressed and encouraged. The patient voiced understanding of the plan, indications to return, and the need for follow-up. Differential diagnosis considered: Heredia virus, strep pharyngitis, allergic rhinitis, upper respiratory tract infection, sinusitis, rhinosinusitis, nasopharyngitis. viral pharyngitis, otitis media, otitis externa, otitis effusion, foreign body, cerumen impaction, viral syndrome, and influenza.? Exam findings show no acute concerns or changes; patient is non-toxic appearing and is in no distress.? Patient is appropriate for outpatient treatment and follow-up.? Medical Records Attestation: I reviewed the patient's medical records. Discharge Plan Discharge Clinical Impression: Upper respiratory infection with cough and congestion Patient Disposition: Home, Self-Care Condition: Stable Instructions: Upper Respiratory Infection (ED) Additional Instructions: Take antibiotic as prescribed. Take steroids in the morning with food. Use Tessalon Perles as needed for cough. Use inhaler with spacer as needed. Other symptomatic treatments include: -Alternate Tylenol and Motrin per package directions for fever or pain: Tylenol 650-1000mg by mouth every 4-6 hours. Do not exceed 4000mg in 24 hours. Advil (Ibuprofen) 600 mg by mouth every 6 hours. Do not exceed 2400mg in 24 hours. 8 AM: Tylenol 11 AM: Ibuprofen 2 PM: Tylenol 5 PM: Ibuprofen 8 PM: Tylenol 11 PM: Ibuprofen 2 AM: Tylenol 5 AM: Ibuprofen -Antihistamine medication such as Benadryl at night and Zyrtec/Claritin/Stephani during the day can help improve symptoms. -Use Flonase twice a day for 5 days then daily to help reduce the inflammation and dry up your sinuses. -You can also use Sudafed or Mucinex. Be sure to drink plenty of water with these medications at least 8 ounces with every dose and it is important to drink 8 to 10 glasses of water per day. Water is a natural decongestant -Eat and drink things that are easy to swallow, like tea or soup, or popsicles. -Oral rinses such as: Salt water gargles and/or may use topical anesthetic (eg. Chloraseptic spray) or lozenges to relieve dryness or throat pain). -Frequent hand washing or hand french folder is one of the best ways to prevent spread of infection. -Using a vaporizer or humidifier at night will also help thin secretions and help with coughing up phlegm. -Follow up with primary care provider in 3-5 days if condition is not improving - For new or worsening symptoms go directly to the nearest ER Patient Language: Bolivian Prescriptions: New (DME) Aerpritesh LOPEZ Spacer See Rx Instructions .Route Qty: 1 0RF Rx Instructions: As directed prednisone 20 mg tablet 40 mg PO DAILY 5 Days Qty: 10 0RF benzonatate 100 mg capsule 100 mg PO BID PRN (Reason: cough) Qty: 14 0RF albuterol sulfate 90 mcg/actuation HFA aerosol inhaler 2 puff inhalation QID PRN (Reason: shortness of breath or wheezing) Qty: 6.7 0RF cefdinir 300 mg capsule 300 mg PO Q12H 7 Days Qty: 14 0RF No Action multivitamin Tablet 1 tablet PO DAILY NuvaRing 0.12-0.015 mg/24 hr ring 1 vag ring VAGINAL ONCE oxybutynin chloride 5 mg tablet 5 mg PO BID cholecalciferol (vitamin D3) 50 mcg (2,000 unit) capsule 50 mcg PO DAILY Viberzi 100 mg tablet 100 mg PO BID 30 Days Qty: 60 2RF Rx Instructions: must administer with a meal/food ferrous sulfate 325 mg (65 mg iron) tablet 325 mg PO DAILY 90 Days Qty: 90 0RF sertraline [Zoloft] 100 mg tablet 150 mg PO DAILY fexofenadine [Stephani Allergy] 60 mg tablet 60 mg PO Q12H fluticasone propionate [Flonase Allergy Relief] 50 mcg/actuation spray,suspension 2 spray intranasal DAILY Rx Instructions: administer into each nostril lisinopril-hydrochlorothiazide 20-12.5 mg tablet See Rx Instructions .ROUTE .COMPLEX Qty: 90 2RF Dose Instruction: Take 1 tablet by mouth once daily Rx Instructions: Take 1 tablet by mouth once daily amlodipine 2.5 mg tablet See Rx Instructions .ROUTE .COMPLEX Qty: 90 2RF Dose Instruction: Take 1 tablet by mouth once daily Rx Instructions: Take 1 tablet by mouth once daily meloxicam 7.5 mg tablet 7.5 mg PO DAILY PRN (Reason: pain) Qty: 90 1RF fenofibrate 160 mg tablet 160 mg PO DAILY Qty: 90 1RF bupropion HCl [Wellbutrin SR] 100 mg tablet sustained-release 12 hr 100 mg PO DAILY Qty: 90 1RF Follow-up/Referrals: Marcus Foote MD [Primary Care Provider] - 3 Days Stand Alone Forms: Work/School Release IP Time of Disposition: 18:09
[2024-09-20 17:43] VITALS: BP 170/89; PULSE 76; RESP 16; TEMP 36.4; O2SAT 99
== END 2024-09-20 18:13 | disposition home or self-care (01) ==
PROVIDERS: Emergency Provider Nurse Practitioner Family; PCP Family Medicine
DX: J06.9 Acute upper respiratory infection, unspecified (principal); R05.9 Cough, unspecified; K90.0 Celiac disease; R73.01 Impaired fasting glucose; E61.1 Iron deficiency; E66.01 Morbid (severe) obesity due to excess calories; Z68.41 Body mass index [BMI] 40.0-44.9, adult
CPT/HCPCS: 99213; G0463

== ENCOUNTER 2024-11-02 10:31 | Outpatient (CLI) | payer BC, SELFPAY ==
--- OUTSIDE RECORDS SUMMARY | 2024-11-02 10:35 | XMS_ITS | Clinical Summary ---
Author Organization [employer] Ivy elliott - 2022 Address [address] [facility] [address] [place] [address] Phone Care Team Providers Care Public Safety Director Name Role Phone Anny Dodge MD Primary Care Provider [phone] Social History Tobacco Use Types Packs/Day Years Used Date Smoking Tobacco: Never Assessed Comments Unknown Sex and Gender Information Value Date Recorded Sex Assigned at Not on file Legal Sex Female 1:55 PM CDT Gender Identity Not on file Sexual Orientation Not on file Plan of Treatment Health Maintenance Due Date Last Done Comments DTAP/TDAP/TD VACCINES (1 - Tdap) 1994 HEPATITIS B VACCINES (1 of 3 - 19+ 3-dose series) 1994 CERVICAL CANCER SCREENING 2005 BREAST CANCER SCREENING 2015 COLORECTAL SCREENING 2020 Colorectal Cancer Screening 2020 FIT-DNA Q 3 years 2020 FIT/FOBT Q 1 year 2020 Flex Sig/CT Colonography Q 5 years 2020 INFLUENZA VACCINE (#1) 2024 PNEUMOCOCCAL VACCINE 0-49 YEARS Aged Out No longer eligible based on patient's age to complete this topic Insurance [facility] [id number] Care Teams Public Safety Director Relationship Specialty Start Date End Date Anny Dodge MD [address] [place] [phone] PCP - General Internal Medicine 01/07/14
--- OUTSIDE RECORDS SUMMARY | 2024-11-02 10:35 | XMS_ITS | Clinical Summary ---
Author Organization [facility] Address [address] [place] [address] Care Team Providers Care Head Of Visual Merchandising Name Role Phone Provider, Unknown Primary Care Provider Unavaila ble Allergies Active Allergy Reactions Criticality Noted Date Comments Levofloxacin Rash Low 12/24/2021 Reaction: Rash, Medications amLODIPine (NORVASC) 2.5 MG Tablet Take 2.5 mg by mouth daily. 3 Active Choline Fenofibrate 45 MG CAPSULE DELAYED RELEASE Take 1 Capsule by mouth. 2 Active Etonogestrel-Eth inyl Estradiol 0.12-0.015 MG/24HR RING INSERT ONE RING VAGINALLY AND LEAVE IN PLACE FOR 3 CONSECUTIVE WEEKS, THEN REMOVE FOR 1 WEEK. INSERT NEW RING 7 DAYS AFTER THE LAST WAS REMOVED 3 Active lisinopril-hydro CHLOROthiazide (PRINZIDE, ZESTORETIC) 20-12.5 MG Tablet Take 1 Tablet by mouth daily. 3 Active fenofibrate 160 MG Tablet Take 160 mg by mouth daily. 3 Active oxybutynin (DITROPAN) 5 MG Tablet Take 5 mg by mouth 2 times daily. 3 Active sertraline (ZOLOFT) 100 MG Tablet TAKE 2 TABLETS BY MOUTH ONCE DAILY 3 Active Active Problems No known active problems Social History Tobacco Use Types Packs/Day Years Used Date Smoking Tobacco: Never Assessed Comments No Sex and Gender Information Value Date Recorded Sex Assigned at Not on file Legal Sex Female 11:12 AM CDT Gender Identity Not on file Sexual Orientation Not on file Last Filed Vital Signs Vital Sign Reading Time Taken Comments Blood Pressure 131/86 11/24/2022 12:28 PM CDT Pulse 70 11/24/2022 12:28 PM CDT Temperature 36.9 C (98.4 F) 11/24/2022 12:28 PM CDT Respiratory Rate 18 11/24/2022 12:28 PM CDT Oxygen Saturation 96% 11/24/2022 12:28 PM CDT Inhaled Oxygen Concentration - - Weight 113.4 kg (250 lb) 11/24/2022 12:28 PM CDT Height 166.4 cm (5' 5.5 ) 11/24/2022 12:28 PM CD T Body Mass Index 40.97 11/24/2022 12:28 PM CDT Plan of Treatment Health Maintenance Due Date Last Done Comments Hepatitis C Virus (HCV) Screening 1975 Mammogram 1975 TdaP Immunization 1975 Hepatitis B Immunization (1 of 3 - 19+ 3-dose series) 1994 Pap Smear 1996 Cervical Cancer Screening (CCS) 2005 HPV/Cotest 2005 Discussion re Starting/Frequency of Mammograms 2015 Colonoscopy 2020 Colorectal Cancer Screening 2020 Influenza Immunization (#1) 04/21/202405/22, 06/26/2019 SARS-COV-2 Immunization ( season) 2024 07/23/2021, 10/09/2020, 09/11/2020 Respiratory Syncytial Virus (RSV) Immunization (Adult) (1 - 1-dose 75+ series) 2050 Meningococcal Immunization (ACWY) Aged Out No longer eligible b ased on patient's age to complete this topic Pneumococcal Immunization Combined Aged Out No longer eligible b ased on patient's age to complete this topic Rotavirus Immunization Aged Out No lo nger eligible based on patient's age to complete this topic [place] [address] [place] [address] Care Teams Head Of Visual Merchandising Relationship Specialty Start Date End Date Provider, Unknown UNKNOWN PCP - General 11/24/22
--- OUTSIDE RECORDS SUMMARY | 2024-11-02 10:35 | XMS_ITS | Clinical Summary ---
Author Organization [address] Address [address] [facility] [place] [address] Care Team Providers Care Import Export Manager Name Role Phone Marcus Foote MD Primary Care Provider Allergies Active Allergy Reactions Criticality Noted Date Comments Gluten Diarrhea Low 04/30/2024 Levofloxacin Rash Medium 12/24/2021 Reaction: Rash, Sulfamethoxazole-Trimeth oprim Redness,Swelling,Swo llen tongue High 12/10/2022 Medications amLODIPine (NORVASC) 2.5 mg tablet Take 1 tablet (2.5 mg total) by mouth daily 1 Active cholecalciferol (Vitamin D3) 2000 unit capsule Active NuvaRing 0.12-0.015 mg/24 hr vaginal ring INSERT ONE RING VAGINALLY AND LEAVE IN PLACE FOR 3 CONSECUTIVE WEEKS THEN REMOVE FOR 1 WEEK. INSERT NEW RING 7 DAYS AFTER THE LAST WAS REMOVED 1 Active oxybutynin (DITROPAN) 5 mg tablet Take 1 tablet (5 mg total) by mouth 2 (two) times a day 1 Active sertraline (ZOLOFT) 100 mg tablet TAKE 1 & 1 2 (ONE & ONE HALF) TABLETS BY MOUTH ONCE DAILY 1 Active Viberzi 100 mg tablet TAKE 1 TABLET BY MOUTH TWICE DAILY WITH MEAL/FOOD FOR 30 DAYS 4 Active fenofibrate (TRIGLIDE) 160 mg tablet Take 1 tablet (160 mg total) by mouth daily Active lisinopril-hydr oCHLOROthiazide (ZESTORETIC) 20-12.5 mg per tablet Take 1 tablet by mouth daily Active meloxicam (MOBIC) 7.5 mg tablet TAKE 1 TABLET BY MOUTH ONCE DAILY NEEDED FOR PAIN Active Active Problems Problem Noted Date Diagnosed Date Vitamin D deficiency 04/30/2024 Assessment & Plan (04/30/2024 4:40 PM CDT): Corrected on replacement Thyroid nodule 04/11/2023 Assessment & Plan (04/30/2024 4:39 PM CDT): Left thyroid nodule benign Plan follow up images Assessment & Plan (04/11/2023 12:10 PM CDT): Left thyroid nodule biopsied today FU cytology Repeat head/neck US in 1 year for further monitoring if benign , twins 01/20/2016 Anovulation 09/17/2015 History of spontaneous 07/24/2015 History of gestational diabetes mellitus (GDM) 0 03/09/2015 Resolved Problems Problem Noted Date Diagnosed Date Resolved Date 01/20/2016 04/30/2024 Possible , not yet confirmed 05/19/2015 04/30/2024 Immunizations Immunization Administration Dates Next Due Moderna SARS-CoV-2 Monovalent Vaccination (12+ Y RS) 10/09/2020,09/11/2020 Medical History Medical History Date Comments Personal history of other di seases of the circulatory system History of hypertension - (A dded by TW Conv) Family History Medical History Relation Name Comments Cancer Other Reported Family History Of Cancer - paternal grandmother, maternal aunt nd uncle (Added by TW Conv) Hypertension Other Reported Previo us High Blood Pressure - father (Added by TW Conv) Relation Name Status Comments Other Social History Tobacco Use Types Packs/Day Years Used Date Smoking Tobacco: Never Tobacco Cessation:Counseling Given: Not Answered Comments Unknown Sex and Gender Information Value Date Recorded Sex Assigned at Not on file Legal Sex Female 10:24 AM OPERATOR ASSISTANT I CEMENTING Gender Identity Female 04/06/2023 11:24 AM CDT Sexual Orientation Straight 04/06/2023 11 :24 AM CDT Obstetrics History Last Filed Vital Signs Vital Sign Reading Time Taken Comments Blood Pressure 167/89 04/30/2024 3:41 PM CDT Pulse 73 04/30/2024 3:41 PM CDT Temperature 36.8 C (98.2 F) 04/30/2024 3:41 PM CDT Respiratory Rate 16 04/03/2021 8:13 AM CDT Oxygen Saturation 97% 04/03/2021 8:13 AM CDT Inhaled Oxygen Concentration - - Weight 120.6 kg (265 lb 12.8 oz) 04/30/2024 3:41 PM CDT Height 166.4 cm (5' 5.5 ) 04/30/2024 3:41 PM CDT Body Mass Index 43.56 04/30/2024 3:41 PM CDT Plan of Treatment Health Maintenance Due Date Last Done Comments Breast Cancer Screening-Mammogram 1975 Cervical Cancer Screening 1975 Colon Cancer Screening-Colonoscopy 1975 Depression Screening 1975 Hepatitis C Screening 1975 DTaP/Tdap/Td Vaccine (1 - Tdap) 1986 Hepatitis B Screening 1993 Regular Well Visit/Exam 18-64 1993 Covid-19 Vaccine (3 - 2023-2 5 season) 2024 10/09/2020, 09/11/2020 Influenza Vaccine (#1) 2024 , 06/26/2019 Pneumococcal vaccine <65 Aged Out No longer eligible based on patient's age to complete this topic Insurance [facility] H[facility]/PPO Address: [facility] [address] [place] [address] [place] Care Teams Import Export Manager Relationship Specialty Start Date End Date Marcus Foote MD [address] [facility] [address] [facility] [address] [place] [address] PCP - General Family Medicine 04/03/21
--- OUTSIDE RECORDS SUMMARY | 2024-11-02 10:35 | XMS_ITS | Referral Summary ---
Author Organization [address] Address [address] [facility] [address] [place] [address] Care Team Providers Care Arboriculture Teacher Name Role Phone Marcus Foote MD Primary [...] SARS-CoV-2 Monovalent Vaccination (12+ Y RS) 10/09/2020,09/11/2020 Social History Tobacco Use Types Packs/Day Years Used Date Smoking Tobacco: Never Tobacco Cessation:Counseling Given: Not Answered Comments Unknown Sex and Gender Information Value Date Recorded Sex Assigned at Not on file Legal Sex Female 10:24 AM GREEN BUILDING ARCHITECT Gender Identity Female 04/06/2023 11:24 AM CDT Sexual Orientation Straight 04/06/2023 11 :24 AM CDT Last Filed Vital Signs Vital Sign Reading [...] 04/30/2024 3:41 PM CDT Plan of Treatment Not on file [place] [employer] [place] [employer] [place] Care Teams Arboriculture Teacher Relationship Specialty Start Date End Date Marcus Foote MD [address] [facility] [address] [place] [address] PCP - General Family Medicine 04/03/21
--- OUTSIDE RECORDS SUMMARY | 2024-11-02 10:35 | XMS_ITS | Continuity of Care Document ---
Author Organization [facility] Address [address] [place] [address] Phone Care Team Providers Care Pick Pulling Machine Operator Name Role Phone Unavailable Unavailable Unavailable Advance Directives Directive Yes / No Effective Date File Name No Information Encounters Encounter Description Practice Location Reason(s) For Visit Diagnoses Date Provider Providers Copied on Encounter [facility], [address] [facility] [address], [place], [place], [id number], tel:[phone] [facility] No Information 201 6 No Information Referring Provider: ANITA Bhardwaj, [address], [place], [address]. tel:[phone] Family History Family Member Type Diagnosis Age At Onset No Information Payers Payer name Insurance type Covered green party ID Authoriza tion(s) No Information Social History Type Description Quantity Date Captured Comments Sex Female Smoking Status No Information Chief Complaint And Reason For Visit No Information History Of Present Illness Encounter Date Complaint History Of Prese nt Illness No Information Instructions Date Instruction Additional Infor mation No Information Assessments Type Assessment Date No Information
[2024-11-02 10:55] LABS: Hematocrit 35.5 % (37.0-47.0); Hemoglobin 11.5 g/dL (12.0-15.0); Mean Corpuscular HGB Conc 32.4 g/dl (32-36); Mean Corpuscular Hemoglobin 26.4 pg (26-34); Mean Corpuscular Volume 81.6 fl (80-100); Mean Platelet Volume 9.6 fl (7.4-10.4); Platelet Count Result 268 k/mm3 (150-375); Red Blood Count 4.35 M/mm3 (4.2-5.4); Red Cell Distribution Width 15.9 % (11.5-14.5); White Blood Count 6.4 K/mm3 (4.5-10.0)
[2024-11-02 11:05] LABS: Add Urine Microscopic? YES; Appearance Urine Clear (Clear); Bacteria Urine 1+ /hpf; Bilirubin Urine Negative (Negative); Blood Urine Negative (Negative); Color Urine Yellow (Yellow); Glucose Urine UA Negative (Negative); Ketones Urine Negative (Negative); Leukocyte Esterase Ur 2+ LEU/UL (Negative); Nitrate Urine Negative (Negative); Non Pathogenic Casts 0-2; Protein Urine Negative (Negative); Specific Grav Ur 1.017 (1.001-1.035); Squamous Epithelial Cell Urine None Seen /hpf (Few); Urobilinogen Urine 0.2 mg/dL (<2.0); WBC Urine 21-50 /hpf (0-3)
[2024-11-02 11:08] LABS: Alanine Aminotransferase 29 U/L (6-35); Albumin Level 3.8 g/dL (3.5-5.1); Alkaline Phosphatase 59 U/L (38-126); Anion Gap 10 mmol/L (4-12); Aspartate Amino Transferase 23 U/L (14-36); Bilirubin,Total 0.3 mg/dL (0.2-1.3); Blood Urea Nitrogen 14 mg/dL (7-17); Calcium 8.9 mg/dL (8.4-10.2); Carbon Dioxide 28 mmol/L (22-30); Chloride 104 mmol/L (98-107); Cholesterol 123 mg/dL (0-200); Estimated Glomerular Filt Rate > 60; Glucose 106 mg/dL (65-110); HDL Direct 33 mg/dL; Sodium 142 mmol/L (137-145); Triglycerides 252 mg/dL (<150)
[2024-11-02 11:09] LABS: Hemoglobin A1C 6.1 % (<5.7)
[2024-11-02 11:12] LABS: Iron 43 ug/dL (37-170)
[2024-11-02 11:19] LABS: LDL Cholesterol Direct 54 mg/dL
[2024-11-02 11:21] LABS: Percent Iron Saturation 9 % (20-50)
== END 2024-11-02 10:32 | disposition home or self-care (01) ==
LOC: ANHLAB 10:33
PROVIDERS: PCP Family Medicine; Referring Provider Nurse Practitioner Family; Visit Provider Physician Assistant Medical
DX: I10 Essential (primary) hypertension (principal); E61.1 Iron deficiency; K90.0 Celiac disease; E78.1 Pure hyperglyceridemia; R73.01 Impaired fasting glucose
CPT/HCPCS: 36415; 80053; 80061; 81001; 82728; 83036; 83540; 83550; 84443; 85027

== ENCOUNTER 2025-01-29 16:07 | Emergency (ER) | payer BC, SELFPAY ==
[2025-01-29 16:11] VITALS: BP 154/90; PULSE 84; RESP 18; TEMP 36.7; O2SAT 97
--- NOTE | 2025-01-29 16:23 | ED_ITS ---
HPI - Wound/Laceration General Chief Complaint: Wound/Laceration Stated Complaint: head laceration Source: patient Mode of arrival: ambulatory Limitations: no limitations History of Present Illness HPI narrative: 49-year-old female with a history of celiac sprue, obesity, MARILIA, hypertension presented to the ED with -- 2.5 cm laceration above her right eyebrow. The patient was trying to kill a snake with a garden Hoe when it bounced back and hit her on the forehead. No loss of consciousness. No other injuries noted. He had a tetanus shot many years ago. no loss of consciousness. No vomiting. Onset (ago): hour(s) ( 1 hour ago) Location: other ( right forehea) Body four view annotation: 2 1. 2.5 cm laceration above the right eyebrow Place: home Patient tetanus UTD: No Context: accidental Associated symptoms: none Related Data Home Medications ?Medication ?Instructions ?Recorded ?Confirmed ?Last Taken ?Type cholecalciferol (vitamin D3) 50 50 mcg PO DAILY 07/09/19 01/15/25 12/15/21 History mcg (2,000 unit) capsule etonogestrel 0.12 mg-ethinyl 1 vag ring vaginal ONCE 07/09/19 01/15/25 12/15/21 History estradiol 0.015 mg/24 hr vaginal ring (NuvaRing) multivitamin 1 tablet PO DAILY 07/09/19 01/15/25 12/15/21 History oxybutynin chloride 5 mg tablet 5 mg PO BID 07/09/19 01/15/25 12/15/21 History sertraline 100 mg tablet (Zoloft) 150 mg PO DAILY 08/18/21 01/15/25 12/15/21 History fexofenadine 60 mg tablet (Stephani 60 mg PO Q12H 10/13/23 01/15/25 Unknown History Allergy) fluticasone propionate 50 2 spray intranasal DAILY 10/13/23 01/15/25 Unknown History mcg/actuation nasal spray,suspension (Flonase Allergy Relief) Allergies Allergy/AdvReac Type Severity Reaction Status Date / Time levofloxacin Allergy Unknown itchy Verified 01/15/25 15:14 hives and rash sulfamethoxazole (From Allergy Swelling Verified 01/15/25 15:14 Bactrim) trimethoprim (From Bactrim) Allergy Swelling Verified 01/15/25 15:14 [facility] Past Medical History Medical History Adenomatous colon polyp Hemorrhoids Fecal incontinence Iron deficiency Celiac disease Positive autoantibody screening for celiac disease MARILIA (obstructive sleep apnea) IFG (impaired fasting glucose) Obesity Morbid obesity Surgical History Surgical History History of section Family History Family History Father Hypertension Social History Social History Smoking status: Never smoker Second hand tobacco smoke exposure: No Alcohol intake: never Substance use: never Substance use type: does not use Living arrangements: with family Occupation/Education: occupation Gender identity (if verbalized by the patient): Female Sexual Orientation (if Verbalized by the Patient): Straight or Heterosexual Spiritual care concerns: No Exam 2 Narrative: Blood pressure 154/90 Const: General: healthy appearing Orientation/consciousness: patient oriented x3 Limitations: no limitations HENMT: Head: normal to inspection Ears: external ears normal F milton/Nose/Sinus: Normal external nose present Face and sinus: normal facial exam Mouth: Yes Normal oral and palatal mucosa present Throat: posterior oropharynx normal Eyes: Conjunctivae: conjunctivae normal Pupils: Equal, round and reactive pupils present EOM: EOMs intact bilaterally Neck: Neck: normal visual inspection and no lymphadenopathy Chest: Chest palpation & inspection: normal inspection of the chest Resp: Effort & Inspection: normal respiratory effort Auscultation: clear to auscultation bilaterally Cardio: Rate: regular rate Rhythm: regular rhythm GI: GI Palp: Yes Soft to palpation Auscultation: normal bowel sounds O ther: no tenderness/ rigidity /rebound. Back/Spine/Pelvis: Back: no CVA tenderness Skin: General skin exam: normal color Other: 2.5 cm full-thickness laceration above the right eyebrow. Neuro: General: patient oriented x3, moves all extremities, no meningeal signs, no focal motor deficits and CN's II-XI intact bilaterally Cranial nerves: Yes Nystagmus not present Speech: normal speech Extrem: General: normal to inspection and no clubbing, cyanosis or edema Psych: Mental Status: mental status grossly normal Affect: normal affect Attitude: cooperative Course Course Emergency Course: Full-thickness facial laceration Vital Signs Vital signs: Vital Signs Temperature 36.7 C 01/29/25 16:11 Pulse Rate 84 01/29/25 16:11 Respiratory Rate 18 01/29/25 16:11 Blood Pressure 154/90 H 01/29/25 16:11 Pulse Oximetry 97 01/29/25 16:11 Oxygen Delivery Room Air 01/29/25 16:11 Temperature 36.7 C 01/29/25 16:11 Pulse Rate 84 01/29/25 16:11 Respiratory Rate 18 01/29/25 16:11 Blood Pressure 154/90 H 01/29/25 16:11 Pulse Oximetry 97 01/29/25 16:11 Oxygen Delivery Room Air 01/29/25 16:11 Procedures Laceration Laceration 1: Date: 01/29/25 Time: 16:49 Site: face Side (If applicable): right Size (cm): 2.5 Description: irregular Depth: simple, single layer Local Anesthetic: lidocaine 1% Amount of anesthesia used (mL): 5 Pre-repair: wound explored ====== Skin Level ====== Size (cm): 3-0 Number of sutures: 6 Technique: running ====== Subcutaneous Layer ====== ====== Muscle Layer ====== ====== Tendon Layer ====== MDM - Wound/Laceration MDM Narrative Medical decision making narrative: facial laceration status post suturing-- suture removal in 10 days. head injury Differential Diagnosis Differential diagnosis: Likely avulsion of skin Discharge Plan Discharge Clinical Impression: Head injury Qualifiers: Encounter type: initial encounter Qualified Code(s): S09.90XA - Unspecified injury of head, initial encounter Facial laceration Qualifiers: Encounter type: initial encounter Qualified Code(s): S01.81XA - Laceration without foreign body of other part of head, initial encounter Patient Disposition: Home Condition: Stable Instructions: Antibiotic Form, Head Injury (ED), Facial Laceration (ED) Patient Language: Welsh Prescriptions: No Action (DME) Aerochamber MV Spacer See Rx Instructions .Route Qty: 1 0RF Rx Instructions: As directed albuterol sulfate 90 mcg/actuation HFA aerosol inhaler 2 puff inhalation QID PRN (Reason: shortness of breath or wheezing) Qty: 6.7 0RF multivitamin Tablet 1 tablet PO DAILY NuvaRing 0.12-0.015 mg/24 hr ring 1 vag ring VAGINAL ONCE oxybutynin chloride 5 mg tablet 5 mg PO BID cholecalciferol (vitamin D3) 50 mcg (2,000 unit) capsule 50 mcg PO DAILY lisinopril-hydrochlorothiazide 20-12.5 mg tablet 1 tablet PO BID Qty: 180 2RF sertraline [Zoloft] 100 mg tablet 150 mg PO DAILY fexofenadine [Stephani Allergy] 60 mg tablet 60 mg PO Q12H fluticasone propionate [Flonase Allergy Relief] 50 mcg/actuation spray,suspension 2 spray intranasal DAILY Rx Instructions: administer into each nostril meloxicam 7.5 mg tablet 7.5 mg PO DAILY PRN (Reason: pain) Qty: 90 1RF fenofibrate 160 mg tablet 160 mg PO DAILY Qty: 90 1RF amlodipine 5 mg tablet 5 mg PO DAILY Qty: 90 1RF Viberzi 100 mg tablet 100 mg PO BID 30 Days Qty: 60 5RF Follow-up/Referrals: Geovany Rubio DO [Physician] - Time of Disposition: 16:50
[2025-01-29] MEDS: LIDOCAINE 1% LOCAL INJ 10 ML VIAL 5 ML INFILTRATE (16:35)
[2025-01-29] MEDS: TETANUS,DIPHTHERIA,AC PERTUSSIS ADULT 0.5 ML (ADACEL) IM (16:35)
--- OUTSIDE RECORDS SUMMARY | 2025-01-29 18:04 | XMS_ITS | Referral Summary ---
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
--- OUTSIDE RECORDS SUMMARY | 2025-01-29 18:04 | XMS_ITS | Continuity of Care Document ---
Author Organization [facility] Address [address] [place] [address] Phone Care Team Providers Care Metal Inspector Name Role Phone Unavailable Unavailable Unavailable Advance Directives Directive Yes / No Effective Date File Name No Information Encounters Encounter Description Practice Location Reason(s) For Visit Diagnoses Date Provider Providers Copied on Encounter [facility], [address] [facility], [place], [place], [id number], tel:[phone] [facility] No Information 201 6 No Information Referring Provider: ANITA Bhardwaj, [address], [place], [address]. tel:[phone] Family History Family Member Type Diagnosis Age [...]
--- OUTSIDE RECORDS SUMMARY | 2025-01-29 18:04 | XMS_ITS | Clinical Summary ---
Author Organization [facility] Address [address] [place] [address] Care Team Providers Care Strainer Tender Name Role Phone Provider, Unknown Primary Care [...] 12:28 PM CDT Height 166.4 cm (5' 5.5) 11/24/2022 12:28 PM CD T Body Mass Index 40.97 11/24/2022 12:28 PM CDT Plan of Treatment Health Maintenance Due Date Last Done Comments Hepatitis C Virus (HCV) Screening 1975 TdaP Immunization 1975 Hepatitis B Immunization (1 of 3 - 19+ 3-dose series) 1994 Colonoscopy 2020 Colorectal Cancer Screening 2020 SARS-COV-2 Immunization ( season) 2024 07/23/2021, 10/09/2020, 09/11/2020 Influenza Immunization (Seas on Ended) 2025 06/09/2020, 06/26/2019 Respiratory Syncytial Virus (RSV) Immunization (Adult) (1 - 1-dose 75+ series) 2050 Human Papillomavirus (HPV) Immunization Aged Out No longer eligible b ased on patient's age to complete this topic Meningococcal Immunization (ACWY) Aged Out No longer eligible b ased on patient's age to complete this topic Pneumococcal Immunization Combined Aged Out No longer eligible b ased on patient's age to complete this topic Rotavirus Immunization Aged Out No lo nger eligible based on patient's age to complete this topic Insurance [facility] Care Teams Strainer Tender Relationship Specialty Start Date End Date Provider, Unknown UNKNOWN PCP - General 11/24/22
--- OUTSIDE RECORDS SUMMARY | 2025-01-29 18:04 | XMS_ITS | Clinical Summary ---
Author Organization [address] Address [address] [facility] [address] [place] [address] Care Team Providers Care Certified Orthoptist Name Role Phone Marcus Foote MD Primary [...] on file Legal Sex Female 10:24 AM MAINTENANCE COORDINATOR Gender Identity Female 04/06/2023 11:24 AM CDT [...] 5 season) 2024 10/09/2020, 09/11/2020 Influenza Vaccine (Season Ended) 2025 06/09/2020, 06/26/2019 Pneumococcal vaccine <65 Aged Out No longer eligible based on patient's age to complete this topic [place] [employer] [place] [employer] [place] Care Teams Certified Orthoptist Relationship Specialty Start Date End Date Marcus Foote MD [address] [facility] [address] [place] [address] PCP - General Family Medicine 04/03/21
--- OUTSIDE RECORDS SUMMARY | 2025-01-29 18:04 | XMS_ITS | Clinical Summary ---
Author Organization [facility] Ivy elliott 2022 Address [address] [facility] [address] [place] [address] Phone Care Team Providers Care Garnetter Name Role Phone Anny Dodge MD Primary Care Provider [phone] Social History Tobacco Use Types Packs/Day Years [...] (1 of 3 - 19+ 3-dose series) 09/22 HPV/Cotest (21-29) 1996 CERVICAL CANCER SCREENING 2005 HPV/Cotest (30-65) 2005 PAP SMEAR 2005 BREAST CANCER SCREENING 2015 COLORECTAL SCREENING 2020 Colorectal Cancer Screening 2020 FIT-DNA Q 3 years 2020 FIT/FOBT Q 1 year 2020 Flex Sig/CT Colonography Q 5 years 2020 INFLUENZA VACCINE (#1) 2024 Insurance [facility] [id number] Care Teams Garnetter Relationship Specialty Start Date End Date Anny Dodge MD [address] [place] [phone] PCP - General Internal Medicine 01/07/14
--- OUTSIDE RECORDS SUMMARY | 2025-01-29 18:16 | XMS_ITS | Continuity of Care Document ---
Author Organization [facility] Address [address] [place] [address] Phone Care Team Providers Care Supervisor Hot Dip Tinning Name Role Phone Unavailable Unavailable Unavailable Advance Directives Directive Yes / No Effective Date File Name No Information Encounters Encounter Description Practice Location Reason(s) For Visit Diagnoses Date Provider Providers Copied on Encounter [facility], [address] [facility], [place], [place], [id number], tel:[phone] [facility] No Information 201 6 No Information Referring Provider: ANITA Bhardwaj, [address], [place], [address]. tel:[phone] Family History Family Member Type Diagnosis Age At Onset No Information Payers Payer name Insurance type Covered libertarian ID Authoriza tion(s) No Information Social History Type Description Quantity Date Captured Comments Sex Female Smoking Status No Information Chief Complaint And Reason For Visit No Information History Of Present Illness Encounter Date Complaint History Of Prese nt Illness No Information Instructions Date Instruction Additional Infor mation No Information Assessments Type Assessment Date No Information
== END 2025-01-29 17:16 | disposition home or self-care (01) ==
PROVIDERS: Emergency Provider Internal Medicine Critical Care Medicine; PCP Family Medicine
DX: S01.81XA Laceration without foreign body of other part of head, initial encounter (principal); I10 Essential (primary) hypertension; W27.1XXA Contact with garden tool, initial encounter; Z23 Encounter for immunization
CPT/HCPCS: 12011; 90471; 90715; 99282; J2003

== ENCOUNTER 2025-03-04 15:02 | Emergency (ER) | payer BC, SELFPAY ==
--- NOTE | 2025-03-04 15:11 | ED.URI ---
HPI - URI/Sore Throat General Chief Complaint: Upper Respiratory Infection Stated Complaint: Sinus Infection Symptoms Time Seen by Provider: 03/04/25 15:21 Source: patient and RN notes reviewed Mode of arrival: ambulatory Limitations: no limitations History of Present Illness HPI Narrative: 49-year-old female presents with concern for a day history of sinus congestion, drainage, sore throat cough. Reports green sinus drainage. Reports history of sinus infections. She reports she has been using [id number]-rwrasrg medications and sinus rinses without relief. She denies fever, ache, chills. MD elicited complaint: cough, sore throat, rhinorrhea and nasal congestion Related Data Home Medications ?Medication ?Instructions ?Recorded ?Confirmed ?Last Taken ?Type cholecalciferol (vitamin D3) 50 50 mcg PO DAILY 07/09/19 02/26/25 12/15/21 History mcg (2,000 unit) capsule etonogestrel 0.12 mg-ethinyl 1 vag ring vaginal ONCE 07/09/19 02/26/25 12/15/21 History estradiol 0.015 mg/24 hr vaginal ring (NuvaRing) multivitamin 1 tablet PO DAILY 07/09/19 02/26/25 12/15/21 History Allergies Allergy/AdvReac Type Severity Reaction Status Date / Time levofloxacin Allergy Unknown itchy Verified 03/04/25 15:15 hives and rash sulfamethoxazole (From Allergy Swelling Verified 03/04/25 15:15 Bactrim) trimethoprim (From Bactrim) Allergy Swelling Verified 03/04/25 15:15 Review of Systems Review of Systems: CONSTITUTIONAL: Denies malaise, chills, or fever. Reports sweats EYES: Denies visual changes, redness, or discharge. ENT: Reports rhinorrhea, congestion, sinus pain, and sore throat. CARDIOVASCULAR: Denies chest pain, palpitations, or edema. RESPIRATORY: Reports cough. Denies dyspnea. GASTROINTESTINAL: Denies abdominal pain, nausea, vomiting, diarrhea SKIN: Denies rash or itching. MUSCULOSKELETAL: Denies myalgia. NEUROLOGIC: Denies headache. All systems reviewed & are unremarkable except as noted in HPI and below PMFSH Past Medical History Medical History Adenomatous colon polyp Hemorrhoids Fecal incontinence Iron deficiency Celiac disease Positive autoantibody screening for celiac disease MARILIA (obstructive sleep apnea) IFG (impaired fasting glucose) Obesity Morbid obesity Surgical History Surgical History History of section Family History Family History Father Hypertension Social History Social History (Updated 02/26/25 @ 15:43 by Yara Edwards) Social History: Smoking status: Never smoker Second hand tobacco smoke exposure: No Alcohol intake: never Substance use: never Substance use type: does not use Do You Feel Safe in your Home?: Yes Lack of Transportation: No Lack of Food: Never True Current Housing: I Have Housing Concerned About Future Housing: No Difficulty Paying Gas/Electric Bills: No Difficulty Paying for Meds: No Currently Unemployed: No Education: Don't Know Difficulty w/ Childcare or Family Care: Decline to Answer Living arrangements: with family Occupation/Education: occupation Gender identity (if verbalized by the patient): Female Sexual Orientation (if Verbalized by the Patient): Straight or Heterosexual Spiritual care concerns: No Comments At time of signature, agree with nursing past medical, surgical, social and family history. There is no relevant family history pertinent to the presenting complaint Exam Narrative: GENERAL: Well-appearing, well-nourished, and in no acute distress. HEAD: Normocephalic EYES: PERRLA, conjunctivae clear ENT: Nares clear, turbinates edematous and erythematous. Mucous membranes moist. TM pearly ritchie with dull light reflex bilaterally; no tragal tenderness. Oropharynx not erythematous without lesions. Tonsils not enlarged and without exudate, no drooling, no hoarseness, no trismus, uvula midline. NECK: Supple. No lymphadenopathy CHEST: Clear to auscultation, breath sounds equal. No wheezing, rhonchi, rales, or stridor. No respiratory distress, speaks in full sentences. HEART: Regular rate and rhythm. No murmur heard. SKIN: Warm, dry, no rash. NEURO: Alert and oriented x3. PSYCH: Normal mood and affect Course Course Emergency Course: Patient is aware of diagnosis, understands and agrees to treatment plan. Anticipatory guidance given. Patient agrees to follow-up as directed and is aware of reasons to seek care at the emergency department. Portions of this record may have been created with voice recognition software Level of Care: Express Care Visit Vital Signs Vital signs: Reviewed. MDM - URI/Sore Throat MDM Narrative Medical decision making narrative: Differential diagnosis considered: Heredia virus, strep pharyngitis, allergic rhinitis, upper respiratory tract infection, sinusitis, rhinosinusitis, nasopharyngitis. viral pharyngitis, otitis media, otitis externa, pneumonia, bronchitis, viral cough syndrome, viral syndrome, and influenza. Exam findings show no acute concerns or changes; patient is non-toxic appearing and is in no distress. Patient is appropriate for outpatient treatment and follow-up. Lab Data Attestation: I reviewed the patient's lab results. Critical Care Time Critical Care Time Critical Care Time: No Discharge Plan Discharge Clinical Impression: Sinusitis Patient Disposition: Home Condition: Stable Instructions: Antibiotic Form, Sinusitis (ED) Additional Instructions: Take medication as directed Nonprescription pain medications, such as acetaminophen (eg, Tylenol) or ibuprofen (eg, Motrin, Advil), are recommended for pain. Flushing the nose and sinuses with a saline solution several times per day has been proven to decrease pain associated with congestion and shorten the duration of symptoms. Nasal steroids (such as Flonase, 2 sprays in each nostril daily) can help to reduce swelling inside the nose, usually within two to three days. These drugs have few side effects and relieve symptoms in most people. Oral decongestants (pseudoephedrine and phenylephrine) may be helpful if you have associated symptoms of ear pain or fullness. Nasal decongestant sprays, including oxymetazoline (Afrin) and phenylephrine (Ronnie-Synephrine), can be used to temporarily treat congestion. However, these sprays should not be used for more than two to three days due to the risk of rebound congestion (when the nose becomes congested constantly unless the medication is used repeatedly), possible addiction, and long-term consequences of frequent use, including persistent nasal dryness and crusting, which is very difficult to treat once it has developed. Medications to thin secretions (such as guaifenesin) may help to clear mucus. Please follow-up with your primary care doctor in the next 1-2 days. If you cannot follow-up with your primary care doctor please go to the ED for any urgent issues. If you have any worsening of symptoms or any other concerns please go to the ED immediately. Patient Language: Upper Sorbian Prescriptions: New methylprednisolone [Medrol (Diaz)] 4 mg tablets,dose pack See Rx Instructions .ROUTE .COMPLEX Qty: 21 0RF Rx Instructions: orally per package directions amoxicillin-pot clavulanate 875-125 mg tablet 1 tablet PO Q12H 10 Days Qty: 20 0RF No Action (DME) Aerochamber MV Spacer See Rx Instructions .Route Qty: 1 0RF Rx Instructions: As directed albuterol sulfate 90 mcg/actuation HFA aerosol inhaler 2 puff inhalation QID PRN (Reason: shortness of breath or wheezing) Qty: 6.7 0RF multivitamin Tablet 1 tablet PO DAILY NuvaRing 0.12-0.015 mg/24 hr ring 1 vag ring VAGINAL ONCE cholecalciferol (vitamin D3) 50 mcg (2,000 unit) capsule 50 mcg PO DAILY lisinopril-hydrochlorothiazide 20-12.5 mg tablet 1 tablet PO BID Qty: 180 2RF amlodipine 2.5 mg tablet 2.5 mg PO BID Qty: 180 1RF fenofibrate 160 mg tablet 160 mg PO DAILY Qty: 90 1RF Viberzi 100 mg tablet 100 mg PO BID 30 Days Qty: 60 5RF Follow-up/Referrals: Marcus Foote MD [Primary Care Provider] - Time of Disposition: 15:29
[2025-03-04 15:15] VITALS: BP 148/94; PULSE 73; RESP 16; TEMP 36.6; O2SAT 99
[2025-03-04 15:24] LABS: EDSTREPNEGPOS1 Negative (Negative)
== END 2025-03-04 15:38 | disposition home or self-care (01) ==
PROVIDERS: Emergency Provider Nurse Practitioner; PCP Family Medicine
DX: J32.9 Chronic sinusitis, unspecified (principal); K90.0 Celiac disease; E66.01 Morbid (severe) obesity due to excess calories; Z68.41 Body mass index [BMI] 40.0-44.9, adult; R73.01 Impaired fasting glucose
CPT/HCPCS: 87081; 87880; 99213; G0463

== ENCOUNTER 2025-06-03 12:46 | Outpatient (CLI) | payer BC, SELFPAY ==
--- OUTSIDE RECORDS SUMMARY | 2025-06-02 13:21 | XMS_ITS | Encounter Summary ---
Author Organization [facility] Healthcare Address [address] [place] [address] Care Team Providers Care Coding Auditor Name Role Phone Marcus Foote MD Primary Care Provider Reason for Referral * Diagnostic Imaging (Routine) - Pending Review Specialty Diagnoses / Procedures Referred By Smiley t Referred To Contact Diagnoses Thyroid nodule Procedures US Head Neck Soft Tissue Som Ramsay MD [address] [address] Phone: tel: fax: [facility] (All Locations) Referral ID Status Reason Start Date Expiration Date V isits Requested Visits Authorized [id number] Pending Review 05/13/2025 06/12/2026 1 1 Reason for Visit * Diagnostic Imaging (Routine) - Pending Review Specialty Diagnoses / Procedures Referred By Smiley rizvi Referred To Contact Diagnoses Thyroid nodule Procedures US Head Neck Soft Tissue Som Ramsay MD [address] [address] Phone: tel: fax: [facility] (All Locations) Referral ID Status Reason Start Date Expiration Date V isits Requested Visits Authorized [id number] Pending Review 05/13/2025 06/12/2026 1 1 Encounter Details Date Type Department Care Team (Latest Contact Info) Description 06/02/2025 1:21 PM CDT - 06/02/2025 11:59 PM CDT Hospital Encounter [facility] [address] [place] [address] Thyroid nodule Discharge Disposition: Discharge to home or self care Social History Tobacco Use Types Packs/Day Years Used Date Smoking Tobacco: Never Comments Unknown Sex and Gender Information Value Date Recorded Sex Assigned at Not on file 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 Gender Identity Female 04/06/2023 11:24 AM CDT Sexual Orientation Straight 04/06/2023 11 :24 AM CDT documented as of this encounter Medications at Time of Discharge amLODIPine (NORVASC) 2.5 mg tablet Take 1 tablet (2.5 mg total) by mouth daily 03/22/2021 cholecalciferol (Vitamin D3) 2000 unit capsule d-mannose 500 mg capsule Take by mouth daily fenofibrate (TRIGLIDE) 160 mg tablet Take 1 tablet (160 mg total) by mouth daily lisinopril-hydro CHLOROthiazide (ZESTORETIC) 20-12.5 mg per tablet Take 1 tablet by mouth daily meloxicam (MOBIC) 7.5 mg tablet TAKE 1 TABLET BY MOUTH ONCE DAILY NEEDED FOR PAIN 02/29/2024 NuvaRing 0.12-0.015 mg/24 hr vaginal ring INSERT ONE RING VAGINALLY AND LEAVE IN PLACE FOR 3 CONSECUTIVE WEEKS THEN REMOVE FOR 1 WEEK. INSERT NEW RING 7 DAYS AFTER THE LAST WAS REMOVED 03/22/2021 oxybutynin (DITROPAN) 5 mg tablet Take 1 tablet (5 mg total) by mouth 2 (two) times a day 02/25/2021 sertraline (ZOLOFT) 100 mg tablet TAKE 1 & 1 2 (ONE & ONE HALF) TABLETS BY MOUTH ONCE DAILY 02/25/2021 Viberzi 100 mg tablet TAKE 1 TABLET BY MOUTH TWICE DAILY WITH MEAL/FOOD FOR 30 DAYS 02/01/2024 documented as of this encounter Discharge Disposition Disposition Code Departure Means Destination Discharge to home or self care documented in this encounter Plan of Treatment Not on file documented as of this encounter Procedures Procedure Name Priority Date/Time Associated Diagnosis Comments US SOFT TISSUE HEAD NECK Schedule Routine, Read Routine (OP Routine) 06/02/2025 1:59 PM CDT Thyroid nodule documented in this encounter Results * US Head Neck Soft Tissue (06/02/2025 1:59 PM CDT) Anatomical Region Laterality Modality Head and Neck N/A Ultrasound 06/02/2025 2:11 PM CDT Impressions 06/02/2025 2:11 PM CDT 1. Recommendation regarding management of described nodules as described above ACR TI-RADS Recommendations FNA should only be recommended on a maximum of 2 nodules. A recommendation for follow-up should only be provided for a maximum of 4 nodules. TR5 (>=7 points) (risk of malignancy > 20%) >=1 cm: FNA 0.5-0.9 cm: follow-up US every year for 5 years <0.5 cm: no further evaluation TR4 (4-6 points) (risk of malignancy 5-20%) >=1.5 cm: FNA 1-1.4 cm: follow-up US in 1, 2, 3, and 5 years <1.0 cm: no further evaluation TR3 (3 points) (risk of malignancy 2-5%) >=2.5 cm: FNA 1.5-2.4 cm: follow-up US in 1, 3, and 5 years <1.5 cm: no further evaluation TR2 (2 points) and TR1 (0 points) (risk of malignancy < 2%) No FNA or follow-up US Electronically signed by: MD Arash Iverson 06/02/2025 2:11 PM CDT EXAMINATION: THYROID SONOGRAM HISTORY: Thyroid nodule. COMPARISON: 05/16/2024 FINDINGS: The thyroid is normal in size. Size right lobe: 4.8 cm craniocaudal, 1.5 cm transverse, 1 cm AP. Size left lobe: 5.1 cm craniocaudal, 2.1 cm transverse, 1.3 cm AP. Size isthmus: 0.6 cm AP. Nodule 1: Location: Left lower . Size: 0.5 x 0.5 cm, previously 0.6 x 0.8 cm Maximum Size: 0.5 cm Composition: Cannot determine (2) Echogenicity: Isoechoic (1) Shape: Not taller than wide (0) Margins: Cannot determine (0) Echogenic foci: Punctate echogenic foci (3) Additional Echogenic foci 1: Peripheral calcifications (2) Additional Echogenic foci 2: None (0) ACR TI-RADS total points: 8 ACR TI-RADS risk category: TR5 (7 or more points) ACR TI-RADS recommendation: Follow-up US in 1 year There is a report of tissue sampling from a left-sided thyroid nodule, unclear whether this is the nodule that has been sampled. Stable 3 cm TR 2 left lower lobe thyroid nodule that does not require further follow-up. Procedure Note Perry Zhang MD - 06/02/2025 EXAMINATION: THYROID SONOGRAM HISTORY: Thyroid nodule. COMPARISON: 05/16/2024 FINDINGS: The thyroid is normal in size. Size right lobe: 4.8 cm craniocaudal, 1.5 cm transverse, 1 cm AP. Size left lobe: 5.1 cm craniocaudal, 2.1 cm transverse, 1.3 cm AP. Size isthmus: 0.6 cm AP. Nodule 1: Location: Left lower . Size: 0.5 x 0.5 cm, previously 0.6 x 0.8 cm Maximum Size: 0.5 cm Composition: Cannot determine (2) Echogenicity: Isoechoic (1) Shape: Not taller than wide (0) Margins: Cannot determine (0) Echogenic foci: Punctate echogenic foci (3) Additional Echogenic foci 1: Peripheral calcifications (2) Additional Echogenic foci 2: None (0) ACR TI-RADS total points: 8 ACR TI-RADS risk category: TR5 (7 or more points) ACR TI-RADS recommendation: Follow-up US in 1 year There is a report of tissue sampling from a left-sided thyroid nodule, unclear whether this is the nodule that has been sampled. Stable 3 cm TR 2 left lower lobe thyroid nodule that does not require further follow-up. IMPRESSION: 1. Recommendation regarding management of described nodules as described above ACR TI-RADS Recommendations FNA should only be recommended on a maximum of 2 nodules. A recommendation for follow-up should only be provided for a maximum of 4 nodules. TR5 (>=7 points) (risk of malignancy > 20%) >=1 cm: FNA 0.5-0.9 cm: follow-up US every year for 5 years <0.5 cm: no further evaluation TR4 (4-6 points) (risk of malignancy 5-20%) >=1.5 cm: FNA 1-1.4 cm: follow-up US in 1, 2, 3, and 5 years <1.0 cm: no further evaluation TR3 (3 points) (risk of malignancy 2-5%) >=2.5 cm: FNA 1.5-2.4 cm: follow-up US in 1, 3, and 5 years <1.5 cm: no further evaluation TR2 (2 points) and TR1 (0 points) (risk of malignancy < 2%) No FNA or follow-up US Electronically signed by: Perry Zhang MD us Som Ramsay MD IMG US PROCEDURES Final Result documented in this encounter Visit Diagnoses Diagnosis Thyroid nodule Nontoxic uninodular goiter documented in this encounter Care Teams Coding Auditor Relationship Specialty Start Date End Date Marcus Foote MD [address] [facility] [address] [place] [address] PCP - General Family Medicine 04/03/21 documented as of this encounter
--- NOTE | ~2025-06-03 | MM_ITS ---
EXAMINATION: MM screening jewel BI w precious HISTORY: Screening TECHNIQUE: Craniocaudal and mediolateral oblique 3-D tomosynthesis images were obtained and synthetic 2-D images were generated. CAD analysis was submitted and interpreted. COMPARISON: 05/11/2023 BREAST PARENCHYMAL COMPOSITION: Not Dense: The breasts are almost entirely fatty. FINDINGS: There is no evidence of suspicious mass, calcification, or architectural distortion to suggest malignancy. There has been no suspicious interval change. IMPRESSION: 1. No mammographic evidence of malignancy. Recommend routine screening mammography in one year. BI-RADS Category 2: Benign finding(s) Reviewed, dictated and finalized at location Q. IMPRESSION: 1. No mammographic evidence of malignancy. Recommend routine screening mammogra phy in one year. BI-RADS Category 2: Benign finding(s)
--- OUTSIDE RECORDS SUMMARY | 2025-06-03 14:23 | XMS_ITS | Encounter Summary ---
Author Organization [facility] Address [address] [place] [address] Phone Care Team Providers Care Candy Waffle Assembler Name Role Phone Marcus Foote MD Primary Care Provider Encounter Details Date Type Department Care Team (Late st Contact Info) Description 06/02/2025 Results Follow-Up [facility] Endocrinology Metabolism and Lipid [address] [facility] 13th [place] [address] [place] [address] Som Ramsay MD [address] [facility] [address] [place] [address] Head Neck Soft Tissue Social History Tobacco Use Types Packs/Day Years Used Date Smoking Tobacco: Never Comments Unknown Sex and Gender Information Value Date Recorded Sex Assigned at Not on file 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
--- OUTSIDE RECORDS SUMMARY | 2025-06-03 14:23 | XMS_ITS | Clinical Summary ---
Author Organization [facility] Address [address] [place] [address] Care Team Providers Care Cigar Bander Hand Name Role Phone Provider, Unknown Primary Care [...] Cervical Cancer Screening (CCS) 2005 HPV/Cotest 2005 Cologuard 2020 Colonoscopy 2020 Colorectal Cancer Screening 2020 Immunochemical Fecal Occult Blood 2020 Influenza Immunization (#1) 04/21/202505/22, 06/26/2019 SARS-COV-2 Immunization ( season) 2025 07/23/2021, 10/09/2020, 09/11/2020 Respiratory Syncytial Virus (RSV) [...] patient's age to complete this topic [place] [address] [place] [address] Care Teams Cigar Bander Hand Relationship Specialty Start Date End Date Provider, Unknown UNKNOWN PCP - General 11/24/22
--- OUTSIDE RECORDS SUMMARY | 2025-06-03 14:23 | XMS_ITS | Clinical Summary ---
Author Organization [facility] Address [address] [facility] [address] [place] [address] Phone Care Team Providers Care Dry Cell Assembly Supervisor Name Role Phone Anny Dodge MD Primary Care Provider [phone] Social History Tobacco Use Types Packs/Day Years [...] Q 5 years 2020 INFLUENZA VACCINE (#1) 2025 Insurance [facility] [employer] PPO [id number] Care Teams Dry Cell Assembly Supervisor Relationship Specialty Start Date End Date Anny Dodge MD [address] [place] [id number] PCP - General Internal Medicine 01/07/14
--- OUTSIDE RECORDS SUMMARY | 2025-06-03 14:23 | XMS_ITS | Clinical Summary ---
Author Organization [address] Address [address] [facility] [address] [place] [address] Care Team Providers Care Refrigeration Tech Name Role Phone Marcus Foote MD Primary [...] MOUTH ONCE DAILY NEEDED FOR PAIN Active d-mannose 500 mg capsule Take by mouth daily Active Active Problems Problem Noted Date Diagnosed Date Vitamin D deficiency 04/30/2024 Assessment & Plan (05/13/2025 4:27 PM CDT): Corrected on replacement Assessment & Plan (04/30/2024 4:40 PM CDT): Corrected on replacement Thyroid nodule 04/11/2023 Assessment & Plan (05/13/2025 4:27 PM CDT): Left thyroid nodule benign Plan follow up images this year Assessment & Plan (04/30/2024 4:39 PM CDT): [...] Possible , not yet confirmed 05/19/2015 04/30/2024 Encounters Date Type Department Care Team Description 06/02/2025 1:21 PM CDT - 06/02/2025 11:59 PM CDT Hospital Encounter [facility] [address] [place] [address] Thyroid nodule Discharge Disposition: Discharge to home or self care 06/02/2025 Results Follow-Up [facility] Endocrinology Metabolism and Lipid [address] [facility] [address] [place] [address] [place] [address] Som Ramsay MD US Head Neck Soft Tissue 05/13/2025 3:20 PM CDT Office Visit [facility] Endocrinology Metabolism and Lipid [address] [facility] [address] [place] [address] Som Ramsay MD Thyroid nodule (Primary Dx); Vitamin D deficiency 04/29/2025 Telephone [facility] Endocrinology Metabolism and Lipid [address] [facility] [address] [place] [address] [place] [address] Sheri Archuleta RN from Last 3 Months Immunizations Immunization Administration Dates Next Due Moderna [...] on file Legal 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 Gender Identity Female 04/06/2023 11:24 AM CDT Sexual Orientation Straight 04/06/2023 11 :24 AM CDT Obstetrics History Last Filed Vital Signs Vital Sign Reading Time Taken Comments Blood Pressure 140/82 05/13/2025 3:35 PM CDT Pulse 71 05/13/2025 3:35 PM CDT Temperature 36.3 C (97.3 F) 05/13/2025 3:35 PM CDT Respiratory Rate 17 05/13/2025 3:35 PM CDT Oxygen Saturation 98% 05/13/2025 3:35 PM CDT Inhaled Oxygen Concentration - - Weight 120.7 kg (266 lb) 05/13/2025 3:35 PM CDT Height 166.4 cm (5' 5.51) 05/13/2025 3:35 PM CD T Body Mass Index 43.58 05/13/2025 3:35 PM CDT Plan of Treatment Health Maintenance Due Date Last Done Comments Breast Cancer Screening-Mammogram 1975 Cervical Cancer Screening 1975 Colon Cancer Screening-Colonoscopy 1975 Depression Screening 1975 Hepatitis C Screening 1975 DTaP/Tdap/Td Vaccine (1 - Tdap) 1986 Hepatitis B Screening 1993 Regular Well Visit/Exam 18-64 1993 Covid-19 Vaccine (3 - 2024-2 6 season) 2025 10/09/2020, 09/11/2020 Influenza Vaccine (#1) 2025 , 06/26/2019 Pneumococcal vaccine <65 Aged Out No longer eligible based on patient's age to complete this topic Procedures Procedure Name Priority Date/Time Associated Diagnosis Comments US SOFT TISSUE HEAD NECK Schedule Routine, Read Routine (OP Routine) 06/02/2025 1:59 PM CDT Thyroid nodule from Last 3 Months Results * US Head Neck Soft Tissue [...] US Electronically signed by: Perry Zhang MD Narrative 06/02/2025 2:11 PM CDT EXAMINATION: THYROID SONOGRAM [...] Ramsay MD IMG US PROCEDURES Final Result from Last 3 Months Insurance [facility] [place] [place] Care Teams Refrigeration Tech Relationship Specialty Start Date End Date Marcus Foote MD [address] [facility] [address] [place] [address] PCP - General Family Medicine 04/03/21
--- OUTSIDE RECORDS SUMMARY | 2025-06-03 14:23 | XMS_ITS | Encounter Summary ---
Author Organization [facility] Address [address] [place] [address] Phone Care Team Providers Care Industrial Truck Driver Name Role Phone Marcus Foote MD Primary Care Provider Encounter Details Date Type Department Care Team (Late st Contact Info) Description 04/29/2025 Telephone [facility] Metabolism and Lipid [address] [facility] 13 [place] [address] [place] [address] Sheri Archuleta RN Social History Tobacco Use Types Packs/Day Years Used Date Smoking Tobacco: Never Comments Unknown Sex and Gender Information Value Date Recorded Sex Assigned at Not on file 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
== END 2025-06-03 12:47 | disposition home or self-care (01) ==
LOC: CHSIMG 12:48
PROVIDERS: PCP Family Medicine; Visit Provider Obstetrics & Gynecology Gynecology
DX: Z12.31 Encounter for screening mammogram for malignant neoplasm of breast (principal)
CPT/HCPCS: 77063; 77067

== ENCOUNTER 2025-07-23 16:24 | Outpatient (CLI) | payer BC, SELFPAY ==
--- OUTSIDE RECORDS SUMMARY | 2025-07-23 17:10 | XMS_ITS | Clinical Summary ---
Author Organization [address] Address [address] [facility] [place] [address] Care Team Providers Care Grading Machine Feeder Name Role Phone Marcus Foote MD Primary [...] - 06/02/2025 11:59 PM CDT Hospital Encounter [facility]) [address] [place] [address] Thyroid nodule Discharge Disposition: Discharge to home or self care 06/02/2025 Results Follow-Up [facility] Medicine Endocrinology Metabolism and Lipid [address] [facility] 13th [place] [address] [place] [address] Som Ramsay MD US Head Neck Soft Tissue 05/13/2025 3:20 PM CDT Office Visit [facility] Medicine Endocrinology Metabolism and Lipid [address] [facility] Floor 1, [address] [place] [address] Som Ramsay MD Thyroid nodule (Primary Dx); Vitamin D deficiency 04/29/2025 Telephone [facility] [place] [facility]ocrinology Metabolism and Lipid [address] 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
--- OUTSIDE RECORDS SUMMARY | 2025-07-23 17:10 | XMS_ITS | Encounter Summary ---
Author Organization [facility] Address [address] [place] [address] Phone Care Team Providers Care Side Laster Staple Name Role Phone Marcus Foote MD Primary Care Provider Encounter Details Date Type Department Care Team (Late st Contact Info) Description 06/02/2025 Results Follow-Up [facility] Endocrinology Metabolism and Lipid [address] 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
--- OUTSIDE RECORDS SUMMARY | 2025-07-23 17:10 | XMS_ITS | Clinical Summary ---
Author Organization [employer] [facility] Address [address] [facility] [address] [place] [address] Phone Care Team Providers Care Insurance Adjuster Name Role Phone Anny Dodge MD Primary Care Provider [phone] Social History Tobacco Use Types Packs/Day Years [...] years 2020 INFLUENZA VACCINE (#1) 2025 Insurance [facility] OPTIONS PPO [id number] Care Teams Insurance Adjuster Relationship Specialty Start Date End Date Anny Dodge MD [address] [place] [phone] PCP - General Internal Medicine 01/07/14
--- OUTSIDE RECORDS SUMMARY | 2025-07-23 17:10 | XMS_ITS | Clinical Summary ---
Author Organization [facility] Address [address] [place] [address] Care Team Providers Care Account Analyst Name Role Phone Provider, Unknown Primary Care [...] patient's age to complete this topic Insurance [place] [address] Care Teams Account Analyst Relationship Specialty Start Date End Date Provider, Unknown UNKNOWN PCP - General 11/24/22
[2025-07-23 18:07] LABS: Vitamin B12 327.0 pg/mL (239-931)
[2025-07-24 15:09] LABS: Deamidated Gliadin Abs, IgA 10 units (0-19); Deamidated Gliadin Abs, IgG 7 units (0-19); Immunoglobulin A, Qn 105 mg/dL (87-352)
== END 2025-07-23 16:25 | disposition home or self-care (01) ==
LOC: ANHLAB 16:25
PROVIDERS: PCP Family Medicine; Visit Provider Nurse Practitioner Family
DX: K90.0 Celiac disease (principal)
CPT/HCPCS: 36415; 82306; 82607; 82746; 82784; 86231; 86258

== ENCOUNTER 2025-08-11 13:41 | Outpatient (CLI) | payer BC, SELFPAY ==
[2025-08-11 14:13] LABS: Hemoglobin A1C 6.5 % (<5.7)
--- OUTSIDE RECORDS SUMMARY | 2025-08-11 15:26 | XMS_ITS | Clinical Summary ---
Author Organization [facility] Address [address] [place] [address] Care Team Providers Care Kick Boxer Name Role Phone Provider, Unknown Primary Care [...] 75+ series) 2050 Human Papillomavirus (HPV) Immunization (No Doses Required) Completed Meningococcal Immunization (ACWY) Aged Out No longer eligible b ased on patient's age to complete this topic Pneumococcal Immunization Combined Aged Out No longer eligible b ased on patient's age to complete this topic Rotavirus Immunization Aged Out No lo nger eligible based on patient's age to complete this topic [place] [address] [place] [address] Care Teams Kick Boxer Relationship Specialty Start Date End Date Provider, Unknown UNKNOWN PCP - General 11/24/22
--- OUTSIDE RECORDS SUMMARY | 2025-08-11 15:26 | XMS_ITS | Clinical Summary ---
Author Organization [employer] [facility] Address [address] [facility] [address] [place] [address] Phone Care Team Providers Care Agency Service Coordinator Name Role Phone Anny Dodge MD Primary Care Provider [phone] Social History Tobacco Use Types Packs/Day Years [...] years 2020 INFLUENZA VACCINE (#1) 2025 Insurance [facility] OPTIONS PPO [id number] Care Teams Agency Service Coordinator Relationship Specialty Start Date End Date Anny Dodge MD [address] [place] [phone] PCP - General Internal Medicine 01/07/14
--- OUTSIDE RECORDS SUMMARY | 2025-08-11 15:26 | XMS_ITS | Clinical Summary ---
Author Organization [address] Address [address] [facility] [place] [address] Care Team Providers Care Cordwood Cutter Helper Name Role Phone Marcus Foote MD Primary [...] - 06/02/2025 11:59 PM CDT Hospital Encounter [facility]) [address] [place] [address] Thyroid nodule Discharge Disposition: Discharge to home or self care 06/02/2025 Results Follow-Up [facility] Medicine Endocrinology Metabolism and Lipid [address] [facility] 13th [place] [address] [place] [address] Som Ramsay MD US Head Neck Soft Tissue 05/13/2025 3:20 PM CDT Office Visit [facility] Medicine Endocrinology Metabolism and Lipid [address] [facility] Floor 1, [address] [place] [address] Som Ramsay MD Thyroid nodule (Primary Dx); Vitamin D deficiency from Last 3 Months Immunizations Immunization Administration [...] on file 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 Gender Identity Female 04/06/2023 11:24 AM CDT [...] Well Visit/Exam 18-64 1993 Covid-19 Vaccine (3 2024-2 6 season) 2025 10/09/2020, 09/11/2020 Influenza Vaccine (#1) 2025 0, 06/26/2019 Pneumococcal vaccine <65 Aged Out No [...] Final Result from Last 3 Months Insurance [facility] CHOICE PLUS [facility] HMO/PPO Address: [address] [address] [place] [address] [employer] [place] [employer] [place] Care Teams Cordwood Cutter Helper Relationship Specialty Start Date End Date Marcus Foote MD [address] [facility] [address] [place] [address] PCP - General Family Medicine 04/03/21
== END 2025-08-11 13:42 | disposition home or self-care (01) ==
PROVIDERS: PCP Family Medicine; Visit Provider Physician Assistant Medical
DX: R73.01 Impaired fasting glucose (principal)
CPT/HCPCS: 36415; 83036